=== PATIENT | female | born 1995 | race Caucasian/White ===

== ENCOUNTER 2019-11-27 14:19 | Emergency (ER) | payer OTHER, SELFPAY | END 2019-11-27 17:33 | disposition left against medical advice (07) | LOC: HO.ED 17:12 | PROVIDERS: Emergency Provider Emergency Medicine | DX: R00.2 Palpitations (principal); R11.10 Vomiting, unspecified | CPT/HCPCS: 99281 ==

== ENCOUNTER 2020-10-09 13:59 | Outpatient (REF) | payer OTHER, SELFPAY ==
--- NOTE | ~2020-10-09 | XR_ITS ---
EXAMINATION: XR SACRUM AND COCCYX CLINICAL INFORMATION: Sacrococcygeal disorder COMPARISON: None TECHNIQUE: 2 views of the sacrum and 2 views of the coccyx were obtained. FINDINGS: No fracture, dislocation or bone lesion is seen. The sacroiliac joints are normal. XR/XR sacrum coccyx min 2V IMPRESSION: Unremarkable examination.
[2020-10-09 16:22] LABS: MANUAL DIFF FLAG NO
[2020-10-09 16:27] LABS: Appearance Urine CLEAR; Color Urine YELLOW; Glucose Urine UA 100 MG/DL (NEG); Leukocyte Esterase Urine NEG (NEG); Nitrite Urine NEG (NEG); Specific Gravity - Urine 1.025 (1.005-1.025); Urine Blood NEG (NEG); Urine Ketones NEG (NEG); Urine Protein NEG (NEG-TRACE)
[2020-10-09 16:27] LABS: Basophils Percent Auto 0.7 % (0-2); Eosinophils Absolute Auto 0.3 X10*3/uL (0.0-0.4); Eosinophils Percent Auto 4.8 % (0-4); Hematocrit 36.2 % (37-47); Hemoglobin 11.9 g/dl (12.0-16.0); Imm Gran Abs Auto 0.01 X10*3/uL (0.00-0.03); Imm Gran Pct Auto 0.2 % (0.0-0.4); Lymphocytes Percent Auto 36.2 % (20-40); Mean Corpuscular HGB Conc 32.9 g/dl (31.0-35.0); Mean Corpuscular Hemoglobin 30.1 pg (27.0-33.0); Mean Corpuscular Volume 91.6 fL (80-98); Mean Platelet Volume 9.7 fL (9.4-12.3); Monocytes Absolute Auto 0.4 X10*3/uL (0.1-1.2); Monocytes Percent Auto 8.2 % (2-11); Neutrophils Absolute Auto 2.7 X10*3/uL (2.0-8.3); Neutrophils Percent Auto 49.9 % (45-73); Platelet Count 359 X10*3/uL (160-400); Red Blood Count 3.95 X10*6/uL (4.20-5.50); Red Cell Distribution Width 12.7 % (11.0-16.0); White Blood Count 5.4 X10*3/uL (4.8-10.8)
[2020-10-09 16:51] LABS: Alanine Aminotransferase 9 U/L (0-31); Albumin Level 4.7 g/dL (3.5-5.0); Alkaline Phosphatase 49 U/L (39-117); Anion Gap 13 (12-20); Aspartate Amino Transferase 18 U/L (5-31); Bilirubin Total 0.6 mg/dL (0.0-1.0); Blood Urea Nitrogen 17 mg/dL (9-16); Calcium 9.9 mg/dL (8.4-10.2); Carbon Dioxide 24 mmol/L (22-29); Chloride 104 mmol/L (96-108); Cholesterol 193 mg/dL; Estimated Glomerular Filt Rate > 60; Glucose Random 68 mg/dL (60-115); Potassium 3.9 mmol/L (3.3-5.1); Sodium 137 mmol/L (135-145); Total Protein 7.8 g/dL (6.5-8.0)
[2020-10-09 17:13] LABS: TSH reflex Free T4 0.45 uIU/mL (0.32-4.0); Vitamin D 25-OH Total 28.8 ng/mL (>30)
== END 2020-10-09 14:00 | disposition home or self-care (01) ==
LOC: HO.HMGCX 13:59
PROVIDERS: PCP Internal Medicine; Visit Provider Internal Medicine
DX: M53.3 Sacrococcygeal disorders, not elsewhere classified (principal); R63.8 Other symptoms and signs concerning food and fluid intake; E55.9 Vitamin D deficiency, unspecified
CPT/HCPCS: 36415; 72220; 80053; 81003; 82306; 82465; 84443; 85025

== ENCOUNTER 2021-07-19 07:15 | Outpatient (REF) | payer OTHER, SELFPAY ==
[2021-07-19 07:46] LABS: MANUAL DIFF FLAG NO
[2021-07-19 08:16] LABS: Basophils Absolute Auto 0.1 X10*3/uL (0.0-0.2); Basophils Percent Auto 0.7 % (0-2); Eosinophils Absolute Auto 0.4 X10*3/uL (0.0-0.4); Eosinophils Percent Auto 5.3 % (0-4); Hematocrit 35.5 % (37.0-47.0); Hemoglobin 11.7 g/dl (12.0-16.0); Imm Gran Abs Auto 0.03 X10*3/uL (0.00-0.03); Imm Gran Pct Auto 0.4 % (0.0-0.4); Lymphocytes Absolute Auto 1.7 X10*3/uL (1.2-4.9); Lymphocytes Percent Auto 23.5 % (20-40); Mean Corpuscular Hemoglobin 30.1 pg (27.0-33.0); Mean Corpuscular Volume 91.3 fL (80.0-98.0); Mean Platelet Volume 9.1 fL (9.4-12.3); Monocytes Absolute Auto 0.6 X10*3/uL (0.1-1.2); Monocytes Percent Auto 7.9 % (2-11); Neutrophils Absolute Auto 4.5 x10*3/uL (2.0-8.3); Neutrophils Percent Auto 62.2 % (45-73); Platelet Count 318 X10*3/uL (160-400); Red Blood Count 3.89 X10*6/uL (4.20-5.50); Red Cell Distribution Width 13.5 % (11.0-16.0); White Blood Count 7.2 X10*3/uL (4.8-10.8)
[2021-07-19 08:29] LABS: Alanine Aminotransferase 12 U/L (0-31); Albumin Level 4.4 g/dL (3.5-5.0); Alkaline Phosphatase 53 U/L (39-117); Anion Gap 12 (12-20); Aspartate Amino Transferase 16 U/L (5-31); Bilirubin Total 0.6 mg/dL (0.0-1.0); Blood Urea Nitrogen 17 mg/dL (9-16); Calcium 9.5 mg/dL (8.4-10.2); Carbon Dioxide 22 mmol/L (22-29); Chloride 109 mmol/L (96-108); Cholesterol 209 mg/dL; Estimated Glomerular Filt Rate > 60; Glucose Fasting 96 mg/dL (60-99); HDL Cholesterol 46 mg/dL; LDL Cholesterol Calculated 146 mg/dl; Potassium 4.2 mmol/L (3.3-5.1); Sodium 139 mmol/L (135-145); Total Protein 7.7 g/dL (6.5-8.0); Triglycerides 86 mg/dL
[2021-07-19 08:42] LABS: HBS Num1 149.51 mIU/mL (0-7.99); HBc Num1 0.07 S/CO (0.00-0.79); HBsAGNum1 0.21 S/CO (0.00-0.99); Hepatitis B Core Antibody Nonreactive (Nonreactive); Hepatitis B Surface Antigen Negative (Negative); ~Hepatitis B Surface Antibody REACTIVE (Nonreactive)
[2021-07-20 11:53] LABS: Rubella IgG Antibody 1.56 Index
== END 2021-07-19 07:16 | disposition home or self-care (01) ==
LOC: HO.LAB 07:15
PROVIDERS: PCP Internal Medicine; Visit Provider Nurse Practitioner Family
DX: Z00.00 Encounter for general adult medical examination without abnormal findings (principal); Z13.9 Encounter for screening, unspecified; I10 Essential (primary) hypertension; E78.00 Pure hypercholesterolemia, unspecified
CPT/HCPCS: 36415; 80053; 80061; 85025; 86704; 86706; 86735; 86762; 86765; 86787; 87340

== ENCOUNTER 2021-10-31 12:44 | Emergency (ER) | payer OTHER, SELFPAY ==
--- NOTE | ~2021-10-31 | CT_ITS ---
EXAMINATION: CT ABDOMEN AND PELVIS WITHOUT CONTRAST CLINICAL INFORMATION: Flank pain. Question kidney stones or pyelonephritis COMPARISON: CT abdomen and pelvis 11/22/2014 TECHNIQUE: Multidetector volumetric imaging was performed from the superior aspect of the liver through the pubic symphysis. Sagittal and coronal reformatted images were obtained on the technologist's workstation. This CT examination was performed using dose optimization techniques as appropriate, variously including the following: *Automated exposure control *Adjustment of mA and/or kV according to patient size (this includes techniques or standardized protocols for targeted exams where dose is matched to indication/reason for exam; i.e. extremities or head) *Use of iterative reconstruction technique DLP: 265 mGy-cm FINDINGS: LUNG BASES: The visualized lung bases are unremarkable. LIVER, GALLBLADDER, AND BILIARY TREE: Unchanged small focus of fatty infiltration in the medial segment left liver lobe adjacent to the falciform ligament. Otherwise normal hepatic attenuation. No suspicious appearing liver lesion. No biliary ductal dilation. Possible small amount of layering sludge in the gallbladder. No calcified stones, gallbladder wall thickening or pericholecystic inflammatory change. PANCREAS: Unremarkable. SPLEEN: Unremarkable. ADRENAL GLANDS: Unremarkable. KIDNEYS AND URETERS: The kidneys are normal in size, shape, and attenuation. No hydronephrosis, hydroureter, or calculi seen. No perinephric stranding. BLADDER: Unremarkable. GASTROINTESTINAL TRACT: The small and large bowel are unremarkable. The appendix is unremarkable. Moderate amount of formed stool in the nondilated colon. No ascites or free air. ABDOMINAL WALL: No significant hernia is appreciated. LYMPH NODES: No lymphadenopathy. VASCULAR: Normal caliber abdominal aorta. PELVIC VISCERA: Gynecologic structures are grossly unremarkable limited assessment. OSSEOUS STRUCTURES: No acute fracture or suspicious osseous lesion. CT/CT abdomen pelvis wo IV con IMPRESSION: 1. No radiodense urinary tract calculi. No hydronephrosis or perinephric stranding/collection. Cannot reliably exclude the diagnosis of pyelonephritis on the basis of noncontrast CT. 2. No acute intra-abdominal process identified.
[2021-10-31 15:12] LABS: MANUAL DIFF FLAG NO
[2021-10-31 15:14] LABS: Basophils Percent Auto 0.3 % (0-2); Eosinophils Absolute Auto 0.1 X10*3/uL (0.0-0.4); Eosinophils Percent Auto 0.6 % (0-4); Hematocrit 37.6 % (37.0-47.0); Hemoglobin 12.5 g/dl (12.0-16.0); Imm Gran Abs Auto 0.04 X10*3/uL (0.00-0.03); Imm Gran Pct Auto 0.4 % (0.0-0.4); Lymphocytes Percent Auto 10.7 % (20-40); Mean Corpuscular HGB Conc 33.2 g/dl (31.0-35.0); Mean Corpuscular Hemoglobin 30.4 pg (27.0-33.0); Mean Corpuscular Volume 91.5 fL (80.0-98.0); Mean Platelet Volume 9.3 fL (9.4-12.3); Monocytes Absolute Auto 0.7 X10*3/uL (0.1-1.2); Monocytes Percent Auto 7.6 % (2-11); Neutrophils Absolute Auto 7.2 x10*3/uL (2.0-8.3); Neutrophils Percent Auto 80.4 % (45-73); Platelet Count 343 X10*3/uL (160-400); Red Blood Count 4.11 X10*6/uL (4.20-5.50); Red Cell Distribution Width 13.1 % (11.0-16.0)
[2021-10-31 15:20] VITALS: BP 124/68; PULSE 97; RESP 18; TEMP 36.9; O2SAT 99; BMI 17.5
[2021-10-31 15:32] LABS: Anion Gap 17 (12-20); Blood Urea Nitrogen 16 mg/dL (9-16); Calcium 9.6 mg/dL (8.4-10.2); Carbon Dioxide 23 mmol/L (22-29); Chloride 106 mmol/L (96-108); Creatinine Clr Calc Pharmacy 59.2; Estimated Glomerular Filt Rate > 60; Glucose Random 97 mg/dL (60-115); Sodium 142 mmol/L (135-145)
[2021-10-31] MEDS: Ondansetron ODT 4 MG TAB.RAPDIS TRANSLINGU ×2 (15:34→17:21)
[2021-10-31 15:58] LABS: Appearance Urine Clear; Color Urine Yellow; Glucose Urine UA Negative (Negative); Leukocyte Esterase Urine Negative (Negative); Nitrite Urine Negative (Negative); UMIC TRIGGER UACC YES; Urine Blood Trace (Negative); Urine Ketones 15 mg/dL (Negative); Urine Protein Negative (Neg-Trace)
[2021-10-31 15:59] LABS: UPreg QC Valid YES; Urine Pregnancy NEGATIVE (NEGATIVE)
[2021-10-31 16:02] LABS: Bacteria Urine None Seen (None Seen); Hyaline Casts Urine 0-2 /LPF (0-2); RBC Urine 0-2 /HPF (0-2); WBC Urine 0-5 /HPF (0-5)
--- NOTE | 2021-10-31 16:32 | ED_ITS ---
HPI - Female Genitourinary General Chief complaint: Urogenital-Female Stated complaint: possible kidney infection,sent from urgent care Time Seen by Provider: 10/31/21 15:12 Source: patient Mode of arrival: ambulatory Limitations: no limitations History of Present Illness HPI Narrative: 26 yolld female presents to the ED for bilateral flank pain and nausea. patient was diagnosed with UTI this past monday and given antiibtiocs. patient states that time she had only dysuria and cloudy urine. patient states today she woke up with bilateral flank pain. patient states no fever or chills. Patient denies any vaginal bleeding, or gross hematuria. Related Data Previous Rx's Medication Instructions Recorded ciprofloxacin HCl 250 mg tablet 250 mg PO BID 5 days #10 tabs 10/29/21 (Cipro) ketorolac 10 mg tablet 10 mg PO QID PRN pain 5 days #20 10/31/21 tabs Allergies Allergy/AdvReac Type Severity Reaction Status Date / Time No Known Allergies Allergy Verified 10/31/21 15:20 Review of Systems Review of Systems: Flank pain Yes all other systems are reviewed and are negative [facility] Past Medical History Medical History Coccygeal pain Underweight Weight disorder Surgical History History of elective breast augmentation Family History Family History Father No problems noted. Mother No problems noted. Maternal Grandmother Diabetes Paternal Grandmother Diabetes Maternal Uncle Cancer Social History Social History Housing: Apartment Alcohol intake: never Patient Tobacco Use Status: Never used Tobacco Second Hand Smoke Exposure: Yes Advance Directives: No Advance Directives Information Provided: Yes service: No Current occupational status: employed Current occupation: paraprofessional Cognitive needs: No Hearing needs: No Vision needs: Yes Physical Exam Vital Signs: Vital Signs: Last Vital Signs Temp 98.4 F 10/31/21 15:20 Pulse 97 10/31/21 15:20 Resp 18 10/31/21 15:20 BP 124/68 10/31/21 15:20 Pulse Ox 99 10/31/21 15:20 O2 Del Method 10/31/21 15:20 BMI result Body Mass Index 17.5 Const: General: cooperative, healthy appearing, comfortable, no acute distress, well developed, alert, awake and Physically active; No acute distress Orientation/consciousness: oriented to person, oriented to place, oriented to time and patient oriented x3 HEENT: Head: Yes normal to inspection, Yes No palpable skull fracture present, Yes normocephalic, Yes atraumatic and No abrasion Eyes: General: appearance normal, both eyes and all related structures Neck: Neck: Yes normal visual inspection, Yes full ROM, Yes no lymphadenopathy, Yes no meningeal signs, Yes trachea midline, Yes supple, No anterior neck swelling and No tender Chest: Chest palpation & inspection: normal inspection of the chest and normal palpation of entire chest wall Resp: Effort & Inspection: normal respiratory effort and able to speak in complete sentences Auscultation: clear to auscultation bilaterally Cardio: Jugular venous distension: no JVD Heart sounds: S1 normal heart sound present and S2 normal heart sound present GI: Inspection: Yes normal to inspection and No abdominal wall ecchymosis Palpation (GI): Soft to palpation, not firm, nontender, no guarding and not rigid : General: Yes CVA tenderness (mild left) and Yes no CVA tenderness Back/Spine/Pelvis: Back: no CVA tenderness and CVA tenderness (mild left) Skin: General skin exam: no rashes or lesions noted and elasticity normal Neuro: General: oriented to person, oriented to place, oriented to time, patient oriented x3, gait normal, moves all extremities, Normal light touch and pain sensation, no meningeal signs, no focal motor deficits and CN's II-XI intact bilaterally Extrem: General: Yes normal to inspection and Yes full ROM Psych: Appearance: grossly normal, well kempt and not disheveled Course Course Course Narrative: Labs and UA was ordered in triage. I reviewed patient's chart and patient's urine sample on the 29 of October positive for nitrates and bacteria. Today UA only shows trace of blood but no longer any nitrites. Due to recent UTI was sent for CT scan to make sure there is no stone. Reevaluation(s) Reevaluation #1: patient's [facility] CT scan came back normal. patient pain resolved after receiving toradol. patient informed to finish taking her antibiotics. patient is safe for dscharge Time: 17:52 MDM - Female Genitourinary MDM Narrative Medical decision making narrative: UTI. Flank pain Lab Data Result diagrams: 10/31/21 14:54 10/31/21 14:54 Labs: Lab Results 10/31/21 10/31/21 10/31/21 Range/Units 14:54 14:54 15:33 WBC 9.0 (4.8-10.8) X10*3/uL RBC 4.11 L (4.20-5.50) X10*6/uL Hgb 12.5 (12.0-16.0) g/dl Hct 37.6 (37.0-47.0) % MCV 91.5 (80.0-98.0) fL MCH 30.4 (27.0-33.0) pg MCHC 33.2 (31.0-35.0) g/dl RDW 13.1 (11.0-16.0) % Plt Count 343 (160-400) X10*3/uL MPV 9.3 L (9.4-12.3) fL Immature Gran % (Auto) 0.4 (0.0-0.4) % Neut % (Auto) 80.4 H (45-73) % Lymph % (Auto) 10.7 L (20-40) % Haines % (Auto) 7.6 (2-11) % Eos % (Auto) 0.6 (0-4) % Baso % (Auto) 0.3 (0-2) % Lymph # (Auto) 1.0 L (1.2-4.9) X10*3/uL Haines # (Auto) 0.7 (0.1-1.2) X10*3/uL Eos # (Auto) 0.1 (0.0-0.4) X10*3/uL Baso # (Auto) 0.0 (0.0-0.2) X10*3/uL Abs Immat Gran (auto) 0.04 H (0.00-0.03) X10*3/uL Absolute Neuts (auto) 7.2 (2.0-8.3) x10*3/uL Absolute Nucleated RBC 0.000 (0.0-0.012) X10*3/uL Nucleated RBC % (auto) 0.0 (0.0-0.2) /100WBC Sodium 142 (135-145) mmol/L Potassium 4.0 (3.3-5.1) mmol/L Chloride 106 (96-108) mmol/L Carbon Dioxide 23 (22-29) mmol/L Anion Gap 17 (12-20) BUN 16 (9-16) mg/dL Creatinine 1.07 (0.5-1.4) mg/dL Estim Creat Clear Calc 59.2 Estimated GFR > 60 Random Glucose 97 (60-115) mg/dL Calcium 9.6 (8.4-10.2) mg/dL Urine Color Yellow Urine Appearance Clear Urine pH 6.0 (5.0-9.0) Ur Specific [place] 1.010 (1.005-1.025) Urine Protein Negative (Neg-Trace) mg/dL Urine Glucose (UA) Negative (Negative) mg/dL Urine Ketones 15 (Negative) mg/dL Urine Blood Trace H (Negative) Urine Nitrite Negative (Negative) Ur Leukocyte Esterase Negative (Negative) Urine RBC 0-2 (0-2) /HPF Urine WBC 0-5 (0-5) /HPF Ur Squamous Epith Cells 3-5 (0-2) /HPF Urine Bacteria None Seen (None Seen) Hyaline Casts 0-2 (0-2) /LPF Urine Test (NEGATIVE) 10/31/21 Range/Units 15:33 WBC (4.8-10.8) X10*3/uL RBC (4.20-5.50) X10*6/uL Hgb (12.0-16.0) g/dl Hct (37.0-47.0) % MCV (80.0-98.0) fL MCH (27.0-33.0) pg MCHC (31.0-35.0) g/dl RDW (11.0-16.0) % Plt Count (160-400) X10*3/uL MPV (9.4-12.3) fL Immature Gran % (Auto) (0.0-0.4) % Neut % (Auto) (45-73) % Lymph % (Auto) (20-40) % Haines % (Auto) (2-11) % Eos % (Auto) (0-4) % Baso % (Auto) (0-2) % Lymph # (Auto) (1.2-4.9) X10*3/uL Haines # (Auto) (0.1-1.2) X10*3/uL Eos # (Auto) (0.0-0.4) X10*3/uL Baso # (Auto) (0.0-0.2) X10*3/uL Abs Immat Gran (auto) (0.00-0.03) X10*3/uL Absolute Neuts (auto) (2.0-8.3) x10*3/uL Absolute Nucleated RBC (0.0-0.012) X10*3/uL Nucleated RBC % (auto) (0.0-0.2) /100WBC Sodium (135-145) mmol/L Potassium (3.3-5.1) mmol/L Chloride (96-108) mmol/L Carbon Dioxide (22-29) mmol/L Anion Gap (12-20) BUN (9-16) mg/dL Creatinine (0.5-1.4) mg/dL Estim Creat Clear Calc Estimated GFR Random Glucose (60-115) mg/dL Calcium (8.4-10.2) mg/dL Urine Color Urine Appearance Urine pH (5.0-9.0) Ur Specific [place] (1.005-1.025) Urine Protein (Neg-Trace) mg/dL Urine Glucose (UA) (Negative) mg/dL Urine Ketones (Negative) mg/dL Urine Blood (Negative) Urine Nitrite (Negative) Ur Leukocyte Esterase (Negative) Urine RBC (0-2) /HPF Urine WBC (0-5) /HPF Ur Squamous Epith Cells (0-2) /HPF Urine Bacteria (None Seen) Hyaline Casts (0-2) /LPF Urine Test NEGATIVE (NEGATIVE) Discharge Plan Discharge Clinical Impression: Urinary tract infection, Acute flank pain Patient Disposition: Home, Self-Care Instructions: Urinary Tract Infection in Women (ED), Flank Pain (ED) Additional Instructions: Your labs and CT scan of abdomen came back normal. You're UA shows improving UTI. Return to the ED immediately for any fever, chills, worsening flank pain, nausea, vomiting, hematuria, dysuria, vaginal bleeding, or any other concerning symptoms. Pleaes follow up with PCP Prescriptions: New ketorolac 10 mg tablet 10 mg PO QID PRN (Reason: pain) 5 Days Qty: 20 0RF Rx Instructions: received toradol 30mg IM in the ED No Action ciprofloxacin HCl [Cipro] 250 mg tablet 250 mg PO BID 5 Days Qty: 10 0RF Stand Alone Forms: Work/School Release Print Language: Belarusian
[2021-10-31] MEDS: Ketorolac Tromethamine 30 MG/ML VIAL IM (17:21)
== END 2021-10-31 18:41 | disposition home or self-care (01) ==
PROVIDERS: Physician Assistant Medical; Emergency Provider Internal Medicine; PCP Internal Medicine
DX: N39.0 Urinary tract infection, site not specified (principal); R10.9 Unspecified abdominal pain; R11.2 Nausea with vomiting, unspecified; Z79.899 Other long term (current) drug therapy
CPT/HCPCS: 36415; 74176; 80048; 81001; 81025; 85025; 96372; 99284; J1885

== ENCOUNTER 2021-11-09 15:51 | Outpatient (REF) | payer OTHER, SELFPAY ==
[2021-11-09 17:54] LABS: Appearance Urine Clear; Color Urine Yellow; Glucose Urine UA Negative (Negative); Leukocyte Esterase Urine Small (1+) (Negative); Nitrite Urine Negative (Negative); Specific Gravity - Urine 1.025 (1.005-1.025); UMIC TRIGGER UACC YES; Urine Blood Negative (Negative); Urine Ketones Negative (Negative); Urine Protein Trace mg/dL (Neg-Trace)
[2021-11-09 18:04] LABS: Bacteria Urine None Seen (None Seen); Hyaline Casts Urine 0-2 /LPF (0-2); RBC Urine 0-2 /HPF (0-2); Squamous Epithelial Cell Urine 0-2 /HPF (0-2); UACC Culture Trigger YES; WBC Urine 21-50 /HPF (0-5)
[2021-11-10 07:15] LABS: Syphilis Screen Nonreactive (Nonreactive)
[2021-11-10 12:31] LABS: CT PCR NOT DETECTED (Not Detect.); NG PCR NOT DETECTED (Not Detect.)
== END 2021-11-09 15:52 | disposition home or self-care (01) ==
LOC: HO.LAB 15:51
PROVIDERS: PCP Internal Medicine; Visit Provider Internal Medicine
DX: Z11.3 Encounter for screening for infections with a predominantly sexual mode of transmission (principal); Z20.2 Contact with and (suspected) exposure to infections with a predominantly sexual mode of transmission; N39.0 Urinary tract infection, site not specified
CPT/HCPCS: 81001; 86780; 87086; 87491; 87591

== ENCOUNTER 2022-01-12 10:57 | Outpatient (REF) | payer OTHER, SELFPAY ==
[2022-01-12 15:23] LABS: Influenza A PCR NEGATIVE (Negative); Influenza B PCR NEGATIVE (Negative); Resp Syncy Virus RNA Qual PCR NEGATIVE (Negative); SARS COV2 PCR INHOUSE NEGATIVE (Negative)
== END 2022-01-12 10:58 | disposition home or self-care (01) ==
LOC: HO.LAB 10:57
PROVIDERS: Visit Provider Nurse Practitioner Family
DX: Z20.822 Contact with and (suspected) exposure to COVID-19 (principal); J02.9 Acute pharyngitis, unspecified
CPT/HCPCS: 0241U

== ENCOUNTER 2022-02-23 06:38 | Outpatient (REF) | payer OTHER, SELFPAY ==
[2022-02-23 07:59] LABS: HCG Quantitative 800 mIU/mL
== END 2022-02-23 06:39 | disposition home or self-care (01) ==
LOC: HO.LAB 06:38
PROVIDERS: PCP Internal Medicine; Visit Provider Internal Medicine
DX: N92.6 Irregular menstruation, unspecified (principal)
CPT/HCPCS: 36415; 84702

== ENCOUNTER 2023-05-23 11:36 | Outpatient (AMB) | payer OTHER, SELFPAY ==
--- NOTE | 2023-05-23 11:37 | MHC.OFFWIV ---
Intake Vital Signs 05/23/23 11:38 Height 5 ft 4 in Weight 110 lb BMI 18.9 BP 114/72 Blood Pressure Location Lt brachial Position Sitting Pulse 60 Pulse Source Pulse Oximeter Temp 97.6 F Temp Source Temporal Artery Scan Pulse Oximetry (%) 100 Oxygen Delivery Method Room Air Intake Visit Reasons: EP sore RT throat yellow mucous (lobby) Intake Note: pt is here today for sore throat yellow mucous started 2days ago Patient Tobacco Use Status: Never used Tobacco Allergies No Known Allergies Allergy (Verified 05/23/23 11:50) Do you need a note to return to daycare/school/sports/work: No HPI HPI Comments History of Present Illness Details Patient is a 27-year-old female in today for sick visit. Patient has no significant past medical history. Patient was diagnosed with COVID 5 days prior to this appointment. She reports symptoms of headache, cough, sore throat. Patient states that the sore throat has gotten progressively worse. Has utilized [id number] cepacol throat lozenges with little effect. She also reports expectorated yellowing green mucus. Patient denies chest pain, shortness a breath, nausea, vomiting, diarrhea, dizziness, numbness PFSH Medical History Migraine Underweight Surgical History History of elective breast augmentation Family History Father No problems noted. Mother No problems noted. Maternal Grandmother Diabetes Paternal Grandmother Diabetes Maternal Uncle Cancer Social History Housing: Apartment Alcohol intake: never Patient Tobacco Use Status: Never used Tobacco e-Cigarette/Vaping Use: Never Used Second Hand Smoke Exposure: Yes service: No Current occupational status: employed Current occupation: paraprofessional Cognitive needs: No Hearing needs: No Vision needs: Yes Review of Systems Const All systems reviewed & are unremarkable except as noted in HPI and below Physical Exam Vital Signs: Last Vital Signs Temp 97.6 F 05/23/23 11:38 Pulse 60 05/23/23 11:38 BP 114/72 05/23/23 11:38 Pulse Ox 100 05/23/23 11:38 Oxygen Delivery Method Room Air 05/23/23 11:38 BMI result Body Mass Index 18.9 Vital signs reviewed stable Const Other: Appearance: Alert.? Oriented X3.? No acute distress.? Head: Normocephalic, atraumatic, no step-offs or deformities ENT: Pharynx erythema. Tonsils +2 no exudate. TM intact and pearly mckenzie Neck: Normal inspection.? Neck supple.?+anterior cervical lymphadenopathy. CVS: Normal heart rate and rhythm.? Pulses normal.? Respiratory: No respiratory distress.? Breath sounds normal.? Neuro: Oriented X 3.? No motor deficit.? No sensory deficit. CN 2-12 intact Assessment & Plan Assessment & Plan (1) COVID: Comment: Patient educated that COVID symptoms can last up to 10 days. Should continue to use [id number] medicine for relief. Can utilize Tylenol and ibuprofen as needed. Should stay hydrated drink plenty water. Code(s): U07.1 - COVID-19 Plan: Take your medications as prescribed. If you were prescribed antibiotics today, it is important that you take your medication to their entirety, do not skip any doses, do not finish them early. Follow-up with your primary care provider this week. Return to the emergency department with new or worsening symptoms. Such as fevers, chills, chest pain, shortness of breath, nausea, vomiting, dizziness, headache, vision changes, lethargy In case of emergency call 911 Plan Strep swab negative. Will call patient with upper respiratory swab results Orders: Orders SARS-CoV2/FLU/RSV Today J06.9 - Acute upper respiratory infection, unspecified Coding Level of Care Code Est Pt Level 3 (66221) Diagnoses COVID U07.1 Time Spent (min) 22
[2023-05-23 11:38] VITALS: BP 114/72; PULSE 60; TEMP 36.4; O2SAT 100; BMI 18.9
== END 2023-05-23 12:32 | disposition home or self-care (01) ==
PROVIDERS: PCP Internal Medicine; Visit Provider Nurse Practitioner Primary Care
DX: U07.1 COVID-19 (principal)
CPT/HCPCS: 99213

== ENCOUNTER 2023-05-23 13:34 | Outpatient (REF) | payer OTHER, SELFPAY ==
[2023-05-23 14:54] LABS: Influenza A PCR NEGATIVE (Negative); Influenza B PCR NEGATIVE (Negative); Resp Syncy Virus RNA Qual PCR NEGATIVE (Negative); SARS COV2 PCR INHOUSE POSITIVE (Negative)
== END 2023-05-23 13:35 | disposition home or self-care (01) ==
LOC: HO.HMGCLNP 13:34
PROVIDERS: Visit Provider Nurse Practitioner Primary Care
DX: Z11.52 Encounter for screening for COVID-19 (principal); J06.9 Acute upper respiratory infection, unspecified
CPT/HCPCS: 0241U

== ENCOUNTER 2023-07-25 15:43 | Outpatient (AMB) | payer OTHER, SELFPAY ==
[2023-07-25 15:45] VITALS: BP 90/62; PULSE 71; O2SAT 99; BMI 17.7
--- NOTE | 2023-07-25 15:45 | A.OFFPC_ITS ---
Vital Signs 07/25/23 15:45 Height 5 ft 4 in Weight 103 lb 0.2 oz BMI 17.7 BP 90/62 Blood Pressure Location Lt brachial Position Sitting Pulse 71 Pulse Source Pulse Oximeter Pulse Oximetry (%) 99 Oxygen Delivery Method Room Air Intake Visit Reasons: pe Animal Cop Required: No Allergies No Known Allergies Allergy (Verified 07/25/23 16:33) Medication List - Last Reconciled 07/25/23 by Kiran Ayoub MD norelgestromin-ethin.estradiol 150-35 mcg/24 hr (Xulane) patches transdermal Tobacco use date assessed: 07/25/23 Dental Screening Dental Screen Date: 07/25/23 Did you have a dental visit in the last 12 months?: Yes Did you have a dental problem in the last 6 months where you did not have access to dental care?: No Was dental information given to patient?: Patient has dentist HPI pe HPI Details Patient comes in today for her annual physical examination States that she feels okay She denies any headaches or dizziness Denies any chest pains, no SOB No nausea/vomiting, no abdominal pain No change in bowel habits noted She denies any acute urinary symptoms Patient goes to [facility] for her annual pap smear and gynecology exam and states that she had her exam done already earlier this year [facility] Medical History Migraine Underweight Surgical History History of elective breast augmentation Family History Father No problems noted. Mother No problems noted. Maternal Grandmother Diabetes Paternal Grandmother Diabetes Maternal Uncle Cancer Social History Housing: Apartment Alcohol intake: never Patient Tobacco Use Status: Never used Tobacco e-Cigarette/Vaping Use: Never Used Second Hand Smoke Exposure: Yes service: No Current occupational status: employed Current occupation: paraprofessional Cognitive needs: No Hearing needs: No Vision needs: Yes Female Reproductive History Menstrual Number of Living Children: 1 Questionnaire PHQ-9 Over the last 2 weeks, how often have you been bothered by any of the following problems? 1. Little interest or pleasure in doing things: not at all 2. Feeling down, depressed, or hopeless: not at all 3. Trouble falling or staying asleep, or sleeping too much: not at all 4. Feeling tired or having little energy: not at all 5. Poor appetite or overeating: not at all 6. Feeling bad about yourself - or that you are a failure or have let yourself or your family down: not at all 7. Trouble concentrating on things, such as reading the newspaper or watching television: not at all 8. Moving or speaking so slowly that other people could have noticed. Or the opposite - being so fidgety or restless that you have been moving around a lot more than usual: not at all 9. Thoughts that you would be better off or of hurting yourself in some way: not at all Total score: 0 Depression Screening Interpretation: Negative Depression Screening Done: Yes 12393 - PHQ-9 Billing: Yes Source: Developed by Drs. Tejinder Ba, Keely Ordonez, Javier Aguirre and colleagues, with an educational hansel from [employer]. Thrive Questionnaire Date Thrive assessed: 07/25/23 I am a: Patient What is your living situation today?: I have a steady place to live Within the past 12 months, did the food you bought not last and you didn't have the money to get more?: Never true Within the past 12 months, did you worry whether your food would run out before you got money to buy more?: Never true Do you have trouble paying for medicines?: No Do you have trouble getting transportation to medical appointments?: No Do you have trouble paying your heating and electricity bill?: No Do you have trouble taking care of your child, family member or friend?: No Do you have trouble with day-to-day activities such as bathing, preparing meals, shopping, managing finances, etc.?: No Are you currently unemployed and looking for a job?: No Are you interested in more education?: No Please select the resources that you would like help with: None Currently or been in a relationship where the following occur: no concerns reported THRIVE Score: 0 AUDIT C Alcohol Use Questionnaire (AUDIT-C) 1. How often do you have a drink containing alcohol?: Never 3. How often do you have six or more drinks on one occasion?: Never Total Score: 0 Score Reviewed/Action Taken: Yes NURYS-7 AMB Questionnaire NURYS-7 Date NURYS - 7 assessed: 07/25/23 Feeling nervous, anxious, or on edge: 0 = Not at all Not being able to stop or control worryin = Not at all Worrying too much about different things: 0 = Not at all Trouble relaxin = Not at all Being so restless that it is hard to sit still: 0 = Not at all Becoming easily annoyed or irritable: 0 = Not at all Feeling afraid as if something awful might happen: 0 = Not at all Total NURYS-7 score (0-4 normal; 5-9 mild; 10-14 moderate; 15-21 severe): 0 Source: Developed by Drs. Tejinder Ba, Keely Ordonez, Javier Aguirre and colleagues, with an educational hansel from [employer]. NURYS-7 Assessment Billing NURYS-7 Assessment Tool: NURYS-7 Assessment 42385 Review of Systems Const Denies chills, Reports difficulty sleeping (mostly because of her 9 months old baby at this time), Denies fatigue, Denies fever(s), Denies headache(s) and Denies malaise Eyes Denies blurry vision, Denies change in vision, Denies irritation and Denies itchy eyes ENT Denies dysphagia, Denies dizziness, Denies otalgia, Denies headache(s), Denies nasal congestion, Denies neck pain, Denies odynophagia, Denies sinus pain and Denies sore throat Card Denies chest pain, Denies rapid heart rate, Denies irregular heart rhythm, Denies palpitations and Denies dyspnea Resp Denies chest congestion, Denies cough, Denies dyspnea and Denies wheezing GI Denies abdominal pain, Denies bloating, Denies constipation, Denies dysphagia, Denies heartburn, Denies diarrhea, Denies nausea, Denies odynophagia and Denies vomiting Denies hematuria, Denies urinary frequency, Denies dysuria, Denies urinary incontinence and Denies urinary urgency Musc Denies back pain, Denies arthralgias, Denies joint swelling, Denies muscle weakness and Denies neck pain Skin/Breast Details: (+) recurrent scaling from her scalp - dandruff Denies breast pain, Denies breast mass, Denies change in pigmentation, Denies lesions, Denies rash and Denies unusual bruising Neuro Denies dizziness, Denies headache(s) and Denies paresthesias Psych Denies anxiety and Denies depression Endo Denies fatigue and Denies palpitations Fredrick/Lymph Denies easy bruising Aller/Immun Denies itchy eyes and Denies wheezing Physical exam (Primary Care) Vital Signs: Last Vital Signs Pulse 71 07/25/23 15:45 BP 90/62 07/25/23 15:45 Pulse Ox 99 07/25/23 15:45 Oxygen Delivery Method Room Air 07/25/23 15:45 BMI result Body Mass Index 17.7 Tobacco/Smoking Status: Tobacco use Status Tobacco use date assessed 07/25/23 07/25/23 15:45 Patient Tobacco Use Status Never used Tobacco 07/25/23 15:45 e-Cigarette/Vaping Use Never Used 07/25/23 15:45 PHQ-9: PHQ-9 Score PHQ-9: Total score 0 07/25/23 16:37 Depression Screening Interpretation: Negative Thrive Assessment: Date of Thrive Assessment Date Thrive assessed 07/25/23 07/25/23 15:45 Currently or been in a relationship where the following occur: no concerns reported Const General: no acute distress, alert and awake Orientation/consciousness: patient oriented x3 HENMT Other: (+) mild seborrhea scattered over a few areas on the scalp Head: Yes normocephalic and Yes atraumatic Ears: external ears normal, TM's normal bilaterally and EAC's normal General nose exam: No nasal discharge present Face and sinus: Yes normal facial exam and Yes sinuses nontender Teeth and gingiva: dentition normal Throat: Yes posterior oropharynx normal and Yes tonsils normal (no TP congestion) Eyes Eyelids: Yes eyelids normal Conjunctivae: conjunctivae normal Pupils: Equal, round and reactive pupils present EOM: EOMs intact bilaterally Neck Neck: Yes no lymphadenopathy and Yes supple Thyroid: Thyroid normal Resp Auscultation: clear to auscultation bilaterally, no rales and no wheezes Cardio Rate: regular rate Rhythm: regular rhythm Heart sounds: no murmurs GI Palpation (GI): Soft to palpation, nontender and No hepatosplenomegaly present Auscultation: normal bowel sounds General: Yes no CVA tenderness Back/Spine/Pelvis Back: no CVA tenderness Thoracic/Lumbar Spine: thoracic and lumbar spine normal to inspection Skin Lesions: no lesions Rashes: no rashes Neuro General: patient oriented x3, moves all extremities, no focal motor deficits and CN's II-XI intact bilaterally Cranial nerves: Yes Equal, round and reactive pupils present Cognition (Neuro): normal cognition Gait exam (Neuro): Normal gait present Extrem General: Yes no clubbing, cyanosis or edema Assessment and Plan Assessment & Plan (1) Annual physical exam: Code(s): Z00.00 - Encounter for general adult medical examination without abnormal findings Plan: Check labs She is up-to-date with her annual gynecology exam and pap smear - goes to [facility] (2) Migraine: Code(s): G43.909 - Migraine, unspecified, not intractable, without status migrainosus Qualifiers: Migraine type: unspecified Status migrainosus presence: without status migrainosus Intractability: not intractable Qualified Code(s): G43.909 - Migraine, unspecified, not intractable, without status migrainosus Plan: Reinforced avoidance of migraine triggers States that her headaches have been well-controlled lately Continue Sumatriptan 50 mg PRN (3) Constipation: Code(s): K59.00 - Constipation, unspecified Qualifiers: Constipation type: unspecified constipation type Qualified Code(s): K59.00 - Constipation, unspecified Plan: Encouraged increased oral fluids and dietary fiber Continue Senna 8.6 mg Q HS PRN (4) Seborrhea capitis: Code(s): L21.0 - Seborrhea capitis Plan: Will start her on Ketoconazole 2% shampoo but advised her to use this no more than 2 to 3 times a week Plan Follow up in 6 months Orders: Orders Complete Blood Count Auto Diff 07/25/23 D64.9 - Anemia, unspecified, Z00. - Encounter for general adult medical examination without abnormal findings Comprehensive Met. Panel 07/25/23 Z00. - Encounter for general adult medical examination without abnormal findings Cholesterol 07/25/23 Z00.00 - Encounter for general adult medical examination without abnormal findings TSH reflex Free T4 07/25/23 E78.00 - Pure hypercholesterolemia, unspecified, Z.00 - Encounter for general adult medical examination without abnormal findings Vitamin D 25-OH Total 07/25/23 E55.9 - Vitamin D deficiency, unspecified, Z00.00 - Encounter for general adult medical examination without abnormal findings UA CC w/rflx Micro + Cult 07/25/23 R30.0 - Dysuria, Z00.00 - Encounter for general adult medical examination without abnormal findings HCG Quantitative 07/25/23 N91.1 - Secondary amenorrhea, N92.6 - Irregular menstruation, unspecified Medications: New ketoconazole 2% 1 appl topical 3XW PRN 120 mL 0RF seborrhea multivitamin 1 tab PO DAILY 90 tabs 3RF 90 days Coding Level of Care Code Est Pt Prev Care 18-39y(62972) Diagnoses Annual physical exam Z00.00 Migraine without status migrainosus, not intractable, unspecified migraine type G43.909 Migraine type: unspecified Status migrainosus presence: without status migrainosus Intractability: not intractable Constipation, unspecified constipation type K59.00 Constipation type: unspecified constipation type Seborrhea capitis L21.0 Additional Codes NURYS-7 Assessment Billing - NURYS-7 Assessment Tool: NURYS-7 Assessment 85141 ([id number])
== END 2023-07-25 16:42 | disposition home or self-care (01) ==
PROVIDERS: PCP Internal Medicine; Visit Provider Internal Medicine
DX: Z00.00 Encounter for general adult medical examination without abnormal findings (principal); G43.909 Migraine, unspecified, not intractable, without status migrainosus; K59.00 Constipation, unspecified; L21.0 Seborrhea capitis
CPT/HCPCS: 99395

== ENCOUNTER 2023-07-27 12:19 | Outpatient (REF) | payer OTHER, SELFPAY ==
[2023-07-27 12:30] LABS: MANUAL DIFF FLAG NO
[2023-07-27 13:00] LABS: Basophils Percent Auto 0.5 % (0-2); Eosinophils Absolute Auto 0.2 X10*3/uL (0.0-0.4); Eosinophils Percent Auto 4.1 % (0-4); Hematocrit 32.6 % (37.0-47.0); Hemoglobin 10.7 g/dl (12.0-16.0); Imm Gran Abs Auto 0.02 X10*3/uL (0.00-0.03); Imm Gran Pct Auto 0.4 % (0.0-0.4); Mean Corpuscular HGB Conc 32.8 g/dl (31.0-35.0); Mean Corpuscular Hemoglobin 27.8 pg (27.0-33.0); Mean Corpuscular Volume 84.7 fL (80.0-98.0); Mean Platelet Volume 9.8 fL (9.4-12.3); Monocytes Absolute Auto 0.5 X10*3/uL (0.1-1.2); Monocytes Percent Auto 8.9 % (2-11); Neutrophils Absolute Auto 2.9 x10*3/uL (2.0-8.3); Neutrophils Percent Auto 51.1 % (45-73); Platelet Count 370 X10*3/uL (160-400); Red Blood Count 3.85 X10*6/uL (4.20-5.50); Red Cell Distribution Width 14.4 % (11.0-16.0); White Blood Count 5.6 X10*3/uL (4.8-10.8)
[2023-07-27 13:18] LABS: Appearance Urine Clear; Color Urine Dark Yellow; Glucose Urine UA Negative (Negative); Leukocyte Esterase Urine Negative (Negative); Nitrite Urine Negative (Negative); PH 5.5 (5.0-9.0); Specific Gravity - Urine >= 1.030 (1.005-1.025); Urine Blood Negative (Negative); Urine Ketones Trace mg/dL (Negative); Urine Protein Trace mg/dL (Neg-Trace)
[2023-07-27 14:03] LABS: Alanine Aminotransferase 11 U/L (0-31); Albumin Level 4.2 g/dL (3.5-5.0); Alkaline Phosphatase 67 U/L (39-117); Anion Gap 11 (12-20); Aspartate Amino Transferase 19 U/L (5-31); Bilirubin Total 0.6 mg/dL (0.0-1.0); Blood Urea Nitrogen 15 mg/dL (9-16); Calcium 9.8 mg/dL (8.4-10.2); Carbon Dioxide 22 mmol/L (22-29); Chloride 109 mmol/L (96-108); Cholesterol 205 mg/dL (<200); Estimated Glomerular Filt Rate > 60; Glucose Random 81 mg/dL (60-115); Potassium 4.1 mmol/L (3.3-5.1); Sodium 138 mmol/L (135-145); Total Protein 7.7 g/dL (6.5-8.0)
[2023-07-27 14:26] LABS: HCG Quantitative < 2 mIU/mL; TSH reflex Free T4 0.73 uIU/mL (0.32-4.0); Vitamin D 25-OH Total 20.3 ng/mL (>30)
== END 2023-07-27 12:20 | disposition home or self-care (01) ==
LOC: HO.LAB 12:19
PROVIDERS: PCP Internal Medicine; Visit Provider Internal Medicine
DX: Z00.00 Encounter for general adult medical examination without abnormal findings (principal); E55.9 Vitamin D deficiency, unspecified; R30.0 Dysuria; E78.00 Pure hypercholesterolemia, unspecified; D64.9 Anemia, unspecified; N91.1 Secondary amenorrhea; N92.6 Irregular menstruation, unspecified
CPT/HCPCS: 36415; 80053; 81003; 82306; 82465; 84443; 84702; 85025

== ENCOUNTER 2023-08-10 16:29 | Emergency (ER) | payer OTHER, SELFPAY ==
--- NOTE | ~2023-08-10 | XR_ITS ---
EXAMINATION: XR CHEST CLINICAL INFORMATION: Chest pain COMPARISON: 05/16/2019 TECHNIQUE: Frontal view of the chest was obtained. FINDINGS: No significant abnormality is noted involving the heart, lungs, mediastinum, bony thorax or soft tissues. XR/XR chest 1V IMPRESSION: Unremarkable examination.
--- NOTE | 2023-08-10 16:30 | ECG_ITS ---
Test Reason : CP Blood Pressure : / mmHG Vent. Rate : 089 BPM Atrial Rate : 089 BPM P-R Int : 140 ms QRS Dur : 066 ms QT Int : 362 ms P-R-T Axes : 063 053 036 degrees QTc Int : 440 ms Normal sinus rhythm Normal ECG When compared with ECG of 16-MAY-2019 15:49, No significant change was found Referred By: Andrés Banks Electronically Signed By:HUGO RUCKER
[2023-08-10 16:38] VITALS: BP 125/80; PULSE 88; RESP 16; TEMP 36.3; O2SAT 100; BMI 18.0
--- NOTE | 2023-08-10 16:55 | ED_ITS ---
HPI - General Adult General Chief complaint: Chest Pain Stated complaint: Chest pain Time Seen by Provider: 08/10/23 17:10 Source: patient Mode of arrival: ambulatory Limitations: no limitations History of Present Illness ED Provider: Deborah Wiggins PA-C HPI narrative: 27 yo female with history of migraines, anxiety, gastritis, s/p breast augmentation/implants 4 years ago who presents to the ER for evaluation of left sided chest pain for the last 2 weeks. She states the pain started as a stabbing pain in the left chest and now is more aching and constant. It is worse with deep breaths, coughing and sneezing. The pain is currently 8/10. She denies any associated pain in the breast. No breast swelling, redness, warmth or drainage. No fever, chills, N/V/D, abdominal pain or SOB. No leg swelling. She is on a control patch for contraception, no hx DVT/PE. She tried calling her PCP for evaluation but they did not get back to her so she came in today as the pain was getting worse. MD complaint: left sided chest pain Onset (ago): week(s) (2) Location: chest Radiation: non-radiation Severity: severe Severity scale (1-10): 8 Quality: stabbing and aching Pain Consistency: constant Relieving factors: rest Exacerbating factors: movement and other (deep breaths, coughing) Associated symptoms: headaches and malaise Treatments prior to arrival: none Related Data Home Medications ?Medication ?Instructions ?Recorded ?Confirmed norelgestromin 150 mcg-e.estradiol patch transdermal 05/23/23 07/25/23 35 mcg/24 hr weekly transderm patch (Xulane) Previous Rx's ?Medication ?Instructions ?Recorded ketoconazole 2 % shampoo 1 appl topical 3XW PRN seborrhea 07/25/23 #120 mL multivitamin 1 tab PO DAILY 90 days #90 tabs 07/25/23 naproxen 500 mg tablet (Naprosyn) 500 mg PO BID #14 tabs 08/10/23 Allergies Allergy/AdvReac Type Severity Reaction Status Date / Time No Known Allergies Allergy Verified 08/10/23 16:41 Review of Systems 2 Review of Systems: Yes all other systems are reviewed and are negative PMFSH Past Medical History Medical History Migraine Underweight Surgical History History of elective breast augmentation Family History Family History Father No problems noted. Mother No problems noted. Maternal Grandmother Diabetes Paternal Grandmother Diabetes Maternal Uncle Cancer Social History Social History Housing: Apartment Alcohol intake: never Patient Tobacco Use Status: Never used Tobacco Smoked in Last 30 Days: No e-Cigarette/Vaping Use: Never Used Second Hand Smoke Exposure: Yes Use of substances other than those prescribed or required for medical reasons: No Advance Directives: No Advance Directives Information Provided: No service: No Current occupational status: employed Current occupation: paraprofessional Cognitive needs: No Hearing needs: No Vision needs: Yes Physical Exam ED Vital Signs: Vital Signs - 24 hr 08/10/23 16:38 08/10/23 18:44 Temperature 97.3 F 97.3 F Pulse Rate 88 88 Respiratory Rate 16 18 Blood Pressure 125/80 125/80 Pulse Oximetry 100 98 Oxygen Delivery Method Room Air Room Air BMI result Body Mass Index 18.0 Appearance: Alert. Oriented X3. No acute distress. Head: normocephalic, atraumatic. Eyes: Pupils equal, round and reactive to light. ENT: Pharynx normal. No tonsillar swelling or exudate. Neck: Normal inspection. Neck supple. ' Chest: normal inspection of the bilateral breasts, no swelling, redness, tenderness of the breasts. nontender chest wall. CVS: Normal heart rate and rhythm. Pulses normal. Respiratory: No respiratory distress. Breath sounds normal. Abdomen: Thin, flat, soft and nontender. +BS x4 Skin: Skin warm and dry. Normal skin color. Normal skin turgor. No rashes. Extremities: No lower extremity edema. No joint swelling. Negative Homans sign Neuro/psych: Oriented X 3. Grossly normal and nonfocal. Normal speech and cognition. Course Course Course Narrative: RME: done by LIBBY Dubose. 27-year-old female presents to ED for 2 weeks of chest pain and feeling tired and fatigued. Patient denies any leg swelling, calf pain, recent surgery. Lungs are clear. Negative for calf tenderness or swelling. Negative for pitting edema. EKG x-ray ordered. Medical Decision Making Medical Decision Making [facility] Narrative: 27 year old female presents to ER for evaluation of left-sided chest pain for the last 2 weeks. It is constant, nonradiating, worse with movement, coughing, sneezing. On arrival to the ER her vital signs are stable, no tachycardia or hypoxia. Unable to use the PERC score is she is on hormonal patch. Given her report of pleurisy there was concern for PE. D-dimer today was negative. Her other lab work, chest x-ray, EKG were all reassuring against life-threatening causes of chest pain. No ACS risk factors. No URI symptoms to suggest pneumonia. Chest x-ray is clear. Patient's workup was unremarkable today. She remained hemodynamically stable while in the emergency department. She was in no distress. Cause of her pain is most likely muscular. Will discharge with NSAID and return precautions. Stable for DC with outpatient follow-up PRN. Differential Diagnosis Differential Diagnoses: The differential diagnosis associated with the presentation includes Costochondritis, muscular pain, pneumonia, infection or rupture of the breast implant Lab Data [facility] Lab Attestation statement: I reviewed the patient's lab results. Mild anemia, thrombocytosis, normal renal function, no major metabolic derangement 08/10/23 16:51 08/10/23 16:51 Labs: Lab Results 08/10/23 Range/Units 16:51 WBC 6.6 (4.8-10.8) X10*3/uL RBC 4.21 (4.20-5.50) X10*6/uL Hgb 11.7 L (12.0-16.0) g/dl Hct 35.7 L (37.0-47.0) % MCV 84.8 (80.0-98.0) fL MCH 27.8 (27.0-33.0) pg MCHC 32.8 (31.0-35.0) g/dl RDW 14.5 (11.0-16.0) % Plt Count 417 H (160-400) X10*3/uL MPV 9.3 L (9.4-12.3) fL Immature Gran % (Auto) 0.2 (0.0-0.4) % Neut % (Auto) 51.2 (45-73) % Lymph % (Auto) 35.0 (20-40) % Moffat % (Auto) 6.7 (2-11) % Eos % (Auto) 6.1 H (0-4) % Baso % (Auto) 0.8 (0-2) % Lymph # (Auto) 2.3 (1.2-4.9) X10*3/uL Moffat # (Auto) 0.4 (0.1-1.2) X10*3/uL Eos # (Auto) 0.4 (0.0-0.4) X10*3/uL Baso # (Auto) 0.1 (0.0-0.2) X10*3/uL Abs Immat Gran (auto) 0.01 (0.00-0.03) X10*3/uL Absolute Neuts (auto) 3.4 (2.0-8.3) x10*3/uL Absolute Nucleated RBC 0.000 (0.0-0.012) X10*3/uL Nucleated RBC % (auto) 0.0 (0.0-0.2) /100WBC PT 12.2 (11.1-13.3) SEC INR 1.0 (0.9-1.1) APTT 32.0 (26.0-36.8) SEC D-Dimer High Sensitivty < 150 NG/ML Sodium 138 (135-145) mmol/L Potassium 3.8 (3.3-5.1) mmol/L Chloride 106 (96-108) mmol/L Carbon Dioxide 23 (22-29) mmol/L Anion Gap 13 (12-20) BUN 19 H (9-16) mg/dL Creatinine 0.77 (0.5-1.4) mg/dL Estim Creat Clear Calc 83.9 Estimated GFR > 60 Random Glucose 86 (60-115) mg/dL Calcium 9.2 D (8.4-10.2) mg/dL Total Bilirubin 0.6 (0.0-1.0) mg/dL AST 16 (5-31) U/L ALT 12 (0-31) U/L Alkaline Phosphatase 75 (39-117) U/L Troponin I High Sens < 2.7 (<3.5-17.0) ng/L Total Protein 8.2 H (6.5-8.0) g/dL Albumin 4.6 (3.5-5.0) g/dL TSH 0.83 (0.32-4.0) uIU/mL Influenza Type A (PCR) NEGATIVE (Negative) Influenza Type B (PCR) NEGATIVE (Negative) RSV RNA Qual (PCR) NEGATIVE (Negative) SARS-CoV-2 RNA (RT-PCR) NEGATIVE (Negative) S. pyogenes GrpA SURAJ Negative (Negative) Independent Interpretation I performed an independent interpretation of an: EKG and Plain X-Ray Interpretation: EKG with normal sinus rhythm, ventricular rate 89 beats per minute, normal [place] interval, normal QTC, no ST segment elevation or depression. Chest x-ray is clear without evidence of pneumothorax or pneumonia Radiology Impression Discussion of test interpretation with radiology: I have reviewed the radiologist's reading. Radiologist Impression: EXAMINATION: XR CHEST CLINICAL INFORMATION: Chest pain COMPARISON: 05/16/2019 TECHNIQUE: Frontal view of the chest was obtained. FINDINGS: No significant abnormality is noted involving the heart, lungs, mediastinum, bony thorax or soft tissues. XR/XR chest 1V IMPRESSION: Unremarkable examination. External Record Review External record reviewed: Outpatient record, Prior outpatient labs and Prior outpatient radiology Tests considered The following testing was considered but not selected: CT angiogram was considered to definitively rule out pulmonary embolism however patient's clinical presentation and workup is less consistent with PE Prescription Management I considered prescription management with: Pain Medication Critical Care Time Critical Care Time Critical Care Time: No Discharge Plan Discharge Clinical Impression: Atypical chest pain Patient Disposition: Home, Self-Care Instructions: Noncardiac Chest Pain (ED) Additional Instructions: Your lab workup, chest x-ray, EKG done today were all reassuring and unremarkable. Your pain is most likely muscular in nature. Recommend taking the prescribed anti-inflammatory medication as directed. Take it with food. Also recommend adding Tylenol 1000 mg every 6-8 hours as needed. Follow-up with your primary care doctor. If you develop new or worsening symptoms call 911 or come back to the ER for further evaluation. Prescriptions: New naproxen [Naprosyn] 500 mg tablet 500 mg PO BID Qty: 14 0RF No Action ketoconazole 2 % shampoo 1 appl topical 3XW PRN (Reason: seborrhea) Qty: 120 0RF multivitamin Tablet 1 tab PO DAILY 90 Days Qty: 90 3RF norelgestromin-ethin.estradiol [Xulane] 150-35 mcg/24 hr patch weekly transdermal Interventions: ED Discharge Assessment Last Done: 08/10/23 18:44 Discharge Date/Time: 08/10/23 18:44 Print Language: Vincentian
[2023-08-10 16:58] LABS: MANUAL DIFF FLAG NO
[2023-08-10 17:02] LABS: Basophils Absolute Auto 0.1 X10*3/uL (0.0-0.2); Basophils Percent Auto 0.8 % (0-2); Eosinophils Absolute Auto 0.4 X10*3/uL (0.0-0.4); Eosinophils Percent Auto 6.1 % (0-4); Hematocrit 35.7 % (37.0-47.0); Hemoglobin 11.7 g/dl (12.0-16.0); Imm Gran Abs Auto 0.01 X10*3/uL (0.00-0.03); Imm Gran Pct Auto 0.2 % (0.0-0.4); Lymphocytes Absolute Auto 2.3 X10*3/uL (1.2-4.9); Mean Corpuscular HGB Conc 32.8 g/dl (31.0-35.0); Mean Corpuscular Hemoglobin 27.8 pg (27.0-33.0); Mean Corpuscular Volume 84.8 fL (80.0-98.0); Mean Platelet Volume 9.3 fL (9.4-12.3); Monocytes Absolute Auto 0.4 X10*3/uL (0.1-1.2); Monocytes Percent Auto 6.7 % (2-11); Neutrophils Absolute Auto 3.4 x10*3/uL (2.0-8.3); Neutrophils Percent Auto 51.2 % (45-73); Platelet Count 417 X10*3/uL (160-400); Red Blood Count 4.21 X10*6/uL (4.20-5.50); Red Cell Distribution Width 14.5 % (11.0-16.0); White Blood Count 6.6 X10*3/uL (4.8-10.8)
[2023-08-10 17:11] LABS: IDNOW Serial# 08D9AD1C; Strep A Nucleic Acid Negative (Negative)
[2023-08-10 17:13] LABS: Prothrombin Time 12.2 SEC (11.1-13.3)
--- NOTE | 2023-08-10 17:25 | PC.NURSE ---
Patient reports left sided breast/chest pain that started two weeks ago and has become a constant 8/10 pain. States that had a breast implant in the past and that could be what is causing the pain.
[2023-08-10 17:32] LABS: Alanine Aminotransferase 12 U/L (0-31); Albumin Level 4.6 g/dL (3.5-5.0); Alkaline Phosphatase 75 U/L (39-117); Anion Gap 13 (12-20); Aspartate Amino Transferase 16 U/L (5-31); Bilirubin Total 0.6 mg/dL (0.0-1.0); Blood Urea Nitrogen 19 mg/dL (9-16); Calcium 9.2 mg/dL (8.4-10.2); Carbon Dioxide 23 mmol/L (22-29); Chloride 106 mmol/L (96-108); Creatinine Clr Calc Pharmacy 83.9; Estimated Glomerular Filt Rate > 60; Glucose Random 86 mg/dL (60-115); Potassium 3.8 mmol/L (3.3-5.1); Sodium 138 mmol/L (135-145); Total Protein 8.2 g/dL (6.5-8.0)
[2023-08-10 17:35] LABS: Troponin-I High Sensitivity < 2.7 ng/L (<3.5-17.0)
[2023-08-10 17:43] LABS: Influenza A PCR NEGATIVE (Negative); Influenza B PCR NEGATIVE (Negative); Resp Syncy Virus RNA Qual PCR NEGATIVE (Negative); SARS COV2 PCR INHOUSE NEGATIVE (Negative)
[2023-08-10 17:48] LABS: TSH reflex Free T4 0.83 uIU/mL (0.32-4.0)
[2023-08-10 18:23] LABS: D Dimer High Sensitivity < 150 NG/ML
[2023-08-10 18:44] VITALS: BP 125/80; PULSE 88; RESP 18; TEMP 36.3; O2SAT 98
== END 2023-08-10 18:44 | disposition home or self-care (01) ==
PROVIDERS: Physician Assistant; Emergency Provider Emergency Medicine; PCP Internal Medicine
DX: R07.89 Other chest pain (principal); R05.9 Cough, unspecified; R51.9 Headache, unspecified; Z79.899 Other long term (current) drug therapy; Z03.818 Encounter for observation for suspected exposure to other biological agents ruled out
CPT/HCPCS: 0241U; 71045; 80053; 84443; 84484; 85025; 85379; 85610; 85730; 87651; 93005; 99283; 99284

== ENCOUNTER → 2023-08-10 16:30 | Outpatient (BNV) | payer OTHER, SELFPAY | PROVIDERS: Emergency Provider Emergency Medicine; PCP Internal Medicine; Visit Provider Internal Medicine | DX: R07.9 Chest pain, unspecified (principal) | CPT/HCPCS: 93010 ==

== ENCOUNTER 2023-11-03 10:35 | Outpatient (AMB) | payer OTHER, SELFPAY ==
--- NOTE | 2023-11-03 11:31 | MHC.OFFWIV ---
Intake Vital Signs 11/03/23 11:32 Height 5 ft 4 in Weight 102 lb BMI 17.5 BP 110/70 Blood Pressure Location Lt brachial Position Sitting Pulse 83 Pulse Source Pulse Oximeter Temp 98.2 F Temp Source Oral Pulse Oximetry (%) 100 Oxygen Delivery Method Room Air Intake Visit Reasons: EP-cough, rt low side belly pain Intake Note: Patient here for right lower pelvic pain that started yesterday and is unsure its from coughing so much which she is already being treated for. Patient Tobacco Use Status: Never used Tobacco Is last menstrual period known: Yes Last menstrual period: 10/28/23 Allergies No Known Allergies Allergy (Verified 11/03/23 11:34) Do you need a note to return to daycare/school/sports/work: No HPI HPI Comments History of Present Illness Details This is a 28-year-old female with no stated past medical history and surgical history of x1 presenting for evaluation of right lower quadrant pain that she has had for the past 1 day. Patient is currently being treated for a bacterial pneumonia with azithromycin and prednisone that she received from an urgent care center in [facility]. Patient states she noted yesterday that when she coughs she has pain in her right lower quadrant that is worsening. Patient denies having any fevers, chills, dysuria, hematuria or vaginal discharge. Patient's last sexual intercourse was 1 month ago and her last normal menstrual period started on October 28, 2023. Patient is taking Tylenol without relief of her abdominal pain. [facility] Medical History Migraine Underweight Surgical History History of elective breast augmentation Family History Father No problems noted. Mother No problems noted. Maternal Grandmother Diabetes Paternal Grandmother Diabetes Maternal Uncle Cancer Social History Housing: Apartment Alcohol intake: never Patient Tobacco Use Status: Never used Tobacco e-Cigarette/Vaping Use: Never Used Second Hand Smoke Exposure: Yes service: No Current occupational status: employed Current occupation: paraprofessional Cognitive needs: No Hearing needs: No Vision needs: Yes Female Reproductive History Menstrual Date of last menstrual period: 10/28/23 Review of Systems Const All systems reviewed & are unremarkable except as noted in HPI and below Denies chills and Denies fever(s) Eyes Reports no additional complaints ENT Reports no additional complaints Card Reports no additional complaints Resp Reports cough GI Reports abdominal pain (RLQ), Denies change in bowel habits, Denies GI cramping, Denies diarrhea, Denies nausea and Denies vomiting Reports no additional complaints, Denies hematuria, Denies difficulty voiding, Denies dysmenorrhea and Denies urinary urgency Musc Reports no additional complaints Skin/Breast Reports system reviewed and no additional complaints, except as documented Neuro Reports no additional complaints Psych Reports no additional complaints Physical Exam Vital Signs: Last Vital Signs Temp 98.2 F 11/03/23 11:32 Pulse 83 11/03/23 11:32 BP 110/70 11/03/23 11:32 Pulse Ox 100 11/03/23 11:32 Oxygen Delivery Method Room Air 11/03/23 11:32 BMI result Body Mass Index 17.5 Const General: cooperative, healthy appearing, comfortable, no acute distress, well developed, alert, awake and Physically active; No ill appearing Nutritional Appearance: thin Orientation/consciousness: patient oriented x3 Limitations: no limitations Cardio Rate: regular rate Rhythm: regular rhythm GI Palpation (GI): Soft to palpation, Tenderness to palpation present (GI) in the RLQ, at McBurney's point and suprapubicly and Bladder palpation abnormal Auscultation: normal bowel sounds General: Yes Bladder palpation abnormal tender, Yes CVA tenderness and Yes no CVA tenderness Back/Spine/Pelvis Back: no CVA tenderness and CVA tenderness Skin General skin exam: no rashes or lesions noted Neuro General: patient oriented x3 Psych Appearance: grossly normal Mental Status: mental status grossly normal Insight: Good insight present (Psych) Judgement: Good judgement present (Psych) Results AMB Urinalysis, Automated UA Leukoctes 0 Yamil/uL Last Edit by COLETTE Maciel on 11/03/23 12:01 UA Nitrite Negative Last Edit by COLETTE Maciel on 11/03/23 12:01 UA Urobilinogen 0.2 mg/dL Last Edit by COLETTE Maciel on 11/03/23 12:01 UA Protein 15 mg/dL [facility] Edit [facility] on 11/03/23 12:01 UA pH 6.0 Last Edit by COLETTE Maciel on 11/03/23 12:01 UA Blood 0 Simone/uL Last Edit by COLETTE Maciel on 11/03/23 12:01 UA Specific [place] 1.015 Last Edit by COLETTE Maciel on 11/03/23 12:01 UA Ketone Positive Last Edit by COLETTE Maciel on 11/03/23 12:01 UA Bilirubin 1 mg/dL Last Edit [facility] on 11/03/23 12:01 UA Glucose 0 mg/dL Last Edit [facility] on 11/03/23 12:01 Results Reviewed Results Reviewed: Urinalysis reviewed - there is no evidence of an acute infection. Assessment & Plan Assessment & Plan (1) Right lower quadrant abdominal pain: Comment: Patient denies any dysuria, vaginal discharge or dyspareunia. Patient is presenting with right lower quadrant abdominal pain and will be directed to the emergency department for further evaluation and care. Code(s): R10.31 - Right lower quadrant pain Plan: Patient will go to the emergency department for further evaluation of her right lower quadrant abdominal pain. Orders: Orders AMB Urinalysis Auto Microscop. Today R10.9 - Unspecified abdominal pain AMB Urinalysis Automated Today Z13.9 - Encounter for screening, unspecified Coding Level of Care Code Est Pt Level 3 (36913) Diagnoses Right lower quadrant abdominal pain R10.31 Time Spent (min) 25
[2023-11-03 11:32] VITALS: BP 110/70; PULSE 83; TEMP 36.8; O2SAT 100; BMI 17.5
== END 2023-11-03 12:37 | disposition home or self-care (01) ==
PROVIDERS: PCP Internal Medicine; Visit Provider Physician Assistant
DX: R10.31 Right lower quadrant pain (principal); Z13.9 Encounter for screening, unspecified

== ENCOUNTER → 2023-11-03 10:35 | Outpatient (BNVA) | payer OTHER, SELFPAY | PROVIDERS: PCP Internal Medicine | DX: R10.31 Right lower quadrant pain (principal) | CPT/HCPCS: 81003; 99212 ==

== ENCOUNTER 2023-11-03 16:47 | Emergency (ER) | payer OTHER, SELFPAY ==
[2023-11-03 17:01] VITALS: BP 145/78; PULSE 112; RESP 20; TEMP 36.8; O2SAT 100; BMI 17.3
--- NOTE | 2023-11-03 17:01 | ED.ABDPAIN ---
HPI - Abdominal Pain General Chief Complaint: Abdominal Pain Stated Complaint: lower R abd pain Time Seen by Provider: 11/03/23 22:02 Source: patient and family Mode of arrival: ambulatory Limitations: no limitations History of Present Illness ED Provider: Dr. Short HPI narrative: Patient is a 28yo female with history of migraine and anxiety who presents with RLQ pain with coughing. Patient states she has been coughing for a week and now every time she coughs she has pain Related Data Home Medications ?Medication ?Instructions ?Recorded ?Confirmed norelgestromin 150 mcg-e.estradiol patch transdermal 05/23/23 07/25/23 35 mcg/24 hr weekly transderm patch (Xulane) azithromycin 250 mg tablet 250 mg PO DIRECTED 11/03/23 prednisone 20 mg tablet 20 mg PO BID 11/03/23 Previous Rx's ?Medication ?Instructions ?Recorded ketoconazole 2 % shampoo 1 appl topical 3XW PRN seborrhea 07/25/23 #120 mL multivitamin 1 tab PO DAILY 90 days #90 tabs 07/25/23 naproxen 500 mg tablet (Naprosyn) 500 mg PO BID #14 tabs 08/10/23 pantoprazole 40 mg tablet,delayed 40 mg PO DAILY #20 tabs 11/03/23 release (Protonix) ecezzlfxaposg-UF-xdfhjkxacfu 5 10 ml PO Q4H #473 mL 11/03/23 mg-10 mg-100 mg/5 mL oral liquid Allergies Allergy/AdvReac Type Severity Reaction Status Date / Time No Known Allergies Allergy Verified 11/03/23 17:04 Review of Systems Review of Systems Yes all other systems are reviewed and are negative Denies Sensory deficit (Neuro) [facility] Past Medical History Medical History Migraine Underweight Surgical History History of elective breast augmentation Family History Family History Father No problems noted. Mother No problems noted. Maternal Grandmother Diabetes Paternal Grandmother Diabetes Maternal Uncle Cancer Social History Social History Housing: Apartment Alcohol intake: never Patient Tobacco Use Status: Never used Tobacco e-Cigarette/Vaping Use: Never Used Second Hand Smoke Exposure: Yes Do you have a plan to hurt others: No Plan service: No Current occupational status: employed Current occupation: paraprofessional Cognitive needs: No Hearing needs: No Vision needs: Yes Physical Exam ED Vital Signs: Vital Signs - 24 hr 11/03/23 17:01 11/03/23 22:19 Temperature 98.2 F 97.8 F Pulse Rate 112 H 83 Respiratory Rate 20 14 Blood Pressure 145/78 H 104/63 Pulse Oximetry 100 100 Oxygen Delivery Method Room Air Room Air BMI result Body Mass Index 17.3 Const Other: coughing General: healthy appearing Nutritional Appearance: average body habitus Orientation/consciousness: oriented to person and patient oriented x3 Limitations: no limitations HENMT Head: Yes normal to inspection Ears: external ears normal General nose exam: Normal external nose present Mouth: Normal oral and palatal mucosa present and oropharynx normal Throat: Yes posterior oropharynx normal Eyes General: appearance normal, both eyes and all related structures Neck Neck: Yes normal visual inspection Chest Chest palpation & inspection: normal inspection of the chest Resp Auscultation: clear to auscultation bilaterally Cardio Jugular venous distension: no JVD Rate: regular rate Rhythm: regular rhythm Heart sounds: S1 normal heart sound present and S2 normal heart sound present GI Other: no bulging in the right lower quadrant Inspection: Yes normal to inspection Palpation (GI): Soft to palpation, nontender and No hepatosplenomegaly present Auscultation: normal bowel sounds General: Yes no CVA tenderness Back/Spine/Pelvis Back: no CVA tenderness Skin General skin exam: no rashes or lesions noted Neuro General: oriented to person and patient oriented x3 Cranial nerves: Yes CN's II-XII intact bilaterally Motor exam (neuro): 5/5 motor strength present throughout Sensory Exam: No Sensory deficit (Neuro) Extrem General: Yes normal to inspection Psych Appearance: grossly normal Course Course Course Narrative: This is a Rapid Medical Exam performed in triage by Anila Salmon PA-C. Full HPI, ROS and PE to be performed by primary ED provider. 28 yo F w/pmhx anxiety presenting to the ED c/o cough x1 week & now with right suprapubic abdominal pain x yesterday, worse with coughing. Admits to diarrhea. denies N/V, melena, brbpr, vaginal bleeding/discharge. LMP 10/27 PE: Tachycardic, actively coughing, lungs CTA, abdomen soft nontender Plan: EKG, labs, UA, viral testing Reevaluation(s) Reevaluation #1: Patient with viral URI, now with abdominal wall strain with coughing, no hernia appreciated Time: 22:17 Medical Decision Making Differential Diagnosis Differential Diagnoses: The differential diagnosis associated with the presentation includes (appendicitis, ovarian cyst, pneumonia, flu covid rsv, hernia) Admission/Observation Consideration of admission/observation: Escalation of care including admission/observation considered (upon arrival admission was considered) Lab Data 11/03/23 17:28 11/03/23 17:28 Labs: Lab Results 11/03/23 Range/Units 17:28 WBC 7.0 (4.8-10.8) X10*3/uL RBC 4.08 L (4.20-5.50) X10*6/uL Hgb 11.3 L (12.0-16.0) g/dl Hct 34.8 L (37.0-47.0) % MCV 85.3 (80.0-98.0) fL MCH 27.7 (27.0-33.0) pg MCHC 32.5 (31.0-35.0) g/dl RDW 14.3 (11.0-16.0) % Plt Count 415 H (160-400) X10*3/uL MPV 9.5 (9.4-12.3) fL Immature Gran % (Auto) 1.3 H (0.0-0.4) % Neut % (Auto) 84.4 H (45-73) % Lymph % (Auto) 13.2 L (20-40) % [place] % (Auto) 1.0 L (2-11) % Eos % (Auto) 0.0 (0-4) % Baso % (Auto) 0.1 (0-2) % Lymph # (Auto) 0.9 L (1.2-4.9) X10*3/uL [place] # (Auto) 0.1 (0.1-1.2) X10*3/uL Eos # (Auto) 0.0 (0.0-0.4) X10*3/uL Baso # (Auto) 0.0 (0.0-0.2) X10*3/uL Abs Immat Gran (auto) 0.09 H (0.00-0.03) X10*3/uL Absolute Neuts (auto) 5.9 (2.0-8.3) x10*3/uL Absolute Nucleated RBC 0.000 (0.0-0.012) X10*3/uL Nucleated RBC % (auto) 0.0 (0.0-0.2) /100WBC Sodium 141 (135-145) mmol/L Potassium 4.1 (3.3-5.1) mmol/L Chloride 107 (96-108) mmol/L Carbon Dioxide 24 (22-29) mmol/L Anion Gap 14 (12-20) BUN 18 H (9-16) mg/dL Creatinine 0.75 (0.5-1.4) mg/dL Estim Creat Clear Calc 82.1 Estimated GFR > 60 Random Glucose 135 H (60-115) mg/dL Calcium 9.7 (8.4-10.2) mg/dL Magnesium 2.2 (1.6-2.6) mg/dL Total Bilirubin 0.2 (0.0-1.0) mg/dL Direct Bilirubin < 0.2 (0.0-0.5) mg/dL AST 19 (5-31) U/L ALT 16 (0-31) U/L Alkaline Phosphatase 66 (39-117) U/L Total Protein 8.2 H (6.5-8.0) g/dL Albumin 4.6 (3.5-5.0) g/dL Lipase 25 (8-78) U/L Urine Color Yellow Urine Appearance Clear Urine pH 6.5 (5.0-9.0) Ur Specific [place] 1.025 (1.005-1.025) Urine Protein Trace (Neg-Trace) mg/dL Urine Glucose (UA) Negative (Negative) mg/dL Urine Ketones Trace (Negative) mg/dL Urine Blood Negative (Negative) Urine Nitrite Negative (Negative) Ur Leukocyte Esterase Negative (Negative) Urine Test NEGATIVE (NEGATIVE) Influenza Type A (PCR) NEGATIVE (Negative) Influenza Type B (PCR) NEGATIVE (Negative) RSV RNA Qual (PCR) NEGATIVE (Negative) SARS-CoV-2 RNA (RT-PCR) NEGATIVE (Negative) Independent Interpretation I performed an independent interpretation of an: EKG (sinus tachycardia, rate 115, no st or twave changes) Independent Historian Clinical information obtained from an independent historian. History obtained from or confirmed by: Spouse and Parent External Record Review External record reviewed: Outpatient record Tests considered The following testing was considered but not selected: CXR: considered but lungs clear, pulse ox normal. Abd/Pel CT considered but abdomen soft and pain is with coughing Prescription Management I considered prescription management with: Antibiotic (no evidence of pneumonia) Discharge Plan Discharge Clinical Impression: Upper respiratory infection, Abdominal wall strain Patient Disposition: Home, Self-Care Instructions: Muscle Strain (ED), Upper Respiratory Infection (ED) Prescriptions: New pantoprazole [Protonix] 40 mg tablet,delayed release (DR/EC) 40 mg PO DAILY Qty: 20 0RF xcdhwdtsrvcuy-WI-ltsrquxbzrx 5-10-100 mg/5 mL liquid 10 ml PO Q4H Qty: 473 0RF No Action naproxen [Naprosyn] 500 mg tablet 500 mg PO BID Qty: 14 0RF ketoconazole 2 % shampoo 1 appl topical 3XW PRN (Reason: seborrhea) Qty: 120 0RF multivitamin Tablet 1 tab PO DAILY 90 Days Qty: 90 3RF norelgestromin-ethin.estradiol [Xulane] 150-35 mcg/24 hr patch weekly transdermal prednisone 20 mg tablet 20 mg PO BID azithromycin 250 mg tablet 250 mg PO DIRECTED Referrals: Kiran Ayoub MD [Primary Care Provider] - 3 days Print Language: Egyptian
--- NOTE | 2023-11-03 17:05 | ECG_ITS ---
Test Reason : tachycardia Blood Pressure : / mmHG Vent. Rate : 115 BPM Atrial Rate : 115 BPM P-R Int : 124 ms QRS Dur : 064 ms QT Int : 300 ms P-R-T Axes : 076 052 021 degrees QTc Int : 415 ms Sinus tachycardia Otherwise normal ECG When compared with ECG of 10-AUG-2023 16:30, Heart rate has increased Referred By: Anila Salmon Electronically Signed By:MARTHA CHRISTENSEN
[2023-11-03 17:37] LABS: MANUAL DIFF FLAG NO
[2023-11-03 17:40] LABS: Appearance Urine Clear; Color Urine Yellow; Glucose Urine UA Negative (Negative); Leukocyte Esterase Urine Negative (Negative); Nitrite Urine Negative (Negative); PH 6.5 (5.0-9.0); Specific Gravity - Urine 1.025 (1.005-1.025); Urine Blood Negative (Negative); Urine Ketones Trace mg/dL (Negative); Urine Protein Trace mg/dL (Neg-Trace)
[2023-11-03 17:41] LABS: UPreg QC Valid YES; Urine Pregnancy NEGATIVE (NEGATIVE)
[2023-11-03 17:46] LABS: Basophils Percent Auto 0.1 % (0-2); Hematocrit 34.8 % (37.0-47.0); Hemoglobin 11.3 g/dl (12.0-16.0); Imm Gran Abs Auto 0.09 X10*3/uL (0.00-0.03); Imm Gran Pct Auto 1.3 % (0.0-0.4); Lymphocytes Absolute Auto 0.9 X10*3/uL (1.2-4.9); Lymphocytes Percent Auto 13.2 % (20-40); Mean Corpuscular HGB Conc 32.5 g/dl (31.0-35.0); Mean Corpuscular Hemoglobin 27.7 pg (27.0-33.0); Mean Corpuscular Volume 85.3 fL (80.0-98.0); Mean Platelet Volume 9.5 fL (9.4-12.3); Monocytes Absolute Auto 0.1 X10*3/uL (0.1-1.2); Neutrophils Absolute Auto 5.9 x10*3/uL (2.0-8.3); Neutrophils Percent Auto 84.4 % (45-73); Platelet Count 415 X10*3/uL (160-400); Red Blood Count 4.08 X10*6/uL (4.20-5.50); Red Cell Distribution Width 14.3 % (11.0-16.0)
[2023-11-03 17:56] LABS: Alanine Aminotransferase 16 U/L (0-31); Albumin Level 4.6 g/dL (3.5-5.0); Alkaline Phosphatase 66 U/L (39-117); Anion Gap 14 (12-20); Aspartate Amino Transferase 19 U/L (5-31); Bilirubin Direct < 0.2 mg/dL (0.0-0.5); Bilirubin Total 0.2 mg/dL (0.0-1.0); Blood Urea Nitrogen 18 mg/dL (9-16); Calcium 9.7 mg/dL (8.4-10.2); Carbon Dioxide 24 mmol/L (22-29); Chloride 107 mmol/L (96-108); Creatinine Clr Calc Pharmacy 82.1; Estimated Glomerular Filt Rate > 60; Glucose Random 135 mg/dL (60-115); Lipase 25 U/L (8-78); Magnesium 2.2 mg/dL (1.6-2.6); Potassium 4.1 mmol/L (3.3-5.1); Sodium 141 mmol/L (135-145); Total Protein 8.2 g/dL (6.5-8.0)
[2023-11-03 18:19] LABS: Influenza A PCR NEGATIVE (Negative); Influenza B PCR NEGATIVE (Negative); Resp Syncy Virus RNA Qual PCR NEGATIVE (Negative); SARS COV2 PCR INHOUSE NEGATIVE (Negative)
[2023-11-03 22:19] VITALS: BP 104/63; PULSE 83; RESP 14; TEMP 36.6; O2SAT 100
[2023-11-03 22:25] VITALS: BP 144/78; PULSE 93; RESP 22; TEMP 36.8; O2SAT 97
[2023-11-03] MEDS: NaPROXEN 500 MG TABLET PO (22:29)
[2023-11-03] MEDS: guaiFENesin 200 MG/10 ML 10 ML LIQUID PO (22:29)
[2023-11-03 22:41] VITALS: BP 144/78; PULSE 93; RESP 22; TEMP 36.8; O2SAT 97
== END 2023-11-03 22:44 | disposition home or self-care (01) ==
PROVIDERS: Physician Assistant; Emergency Provider Emergency Medicine; PCP Internal Medicine
DX: J06.9 Acute upper respiratory infection, unspecified (principal); R05.9 Cough, unspecified; S39.011A Strain of muscle, fascia and tendon of abdomen, initial encounter; X50.9XXA Other and unspecified overexertion or strenuous movements or postures, initial encounter; Y93.89 Activity, other specified; Y92.9 Unspecified place or not applicable; Y99.9 Unspecified external cause status; Z03.818 Encounter for observation for suspected exposure to other biological agents ruled out
CPT/HCPCS: 0241U; 36415; 80048; 80076; 81003; 81025; 83690; 83735; 85025; 93005; 99283; 99285

== ENCOUNTER 2023-11-30 10:46 | Outpatient (REF) | payer OTHER, SELFPAY ==
[2023-11-30 11:26] LABS: MANUAL DIFF FLAG NO
[2023-11-30 11:47] LABS: Basophils Absolute Auto 0.1 X10*3/uL (0.0-0.2); Basophils Percent Auto 1.1 % (0-2); Eosinophils Absolute Auto 0.2 X10*3/uL (0.0-0.4); Hematocrit 32.7 % (37.0-47.0); Imm Gran Abs Auto 0.01 X10*3/uL (0.00-0.03); Imm Gran Pct Auto 0.2 % (0.0-0.4); Lymphocytes Absolute Auto 1.7 X10*3/uL (1.2-4.9); Lymphocytes Percent Auto 38.3 % (20-40); Mean Corpuscular HGB Conc 33.6 g/dl (31.0-35.0); Mean Corpuscular Hemoglobin 28.8 pg (27.0-33.0); Mean Corpuscular Volume 85.6 fL (80.0-98.0); Mean Platelet Volume 9.1 fL (9.4-12.3); Monocytes Absolute Auto 0.4 X10*3/uL (0.1-1.2); Monocytes Percent Auto 7.9 % (2-11); Neutrophils Absolute Auto 2.1 x10*3/uL (2.0-8.3); Neutrophils Percent Auto 47.5 % (45-73); Platelet Count 361 X10*3/uL (160-400); Red Blood Count 3.82 X10*6/uL (4.20-5.50); Red Cell Distribution Width 14.9 % (11.0-16.0); White Blood Count 4.4 X10*3/uL (4.8-10.8)
[2023-11-30 12:27] LABS: Alanine Aminotransferase 18 U/L (0-31); Albumin Level 4.4 g/dL (3.5-5.0); Alkaline Phosphatase 63 U/L (39-117); Anion Gap 10 (12-20); Aspartate Amino Transferase 25 U/L (5-31); Bilirubin Total 0.6 mg/dL (0.0-1.0); Blood Urea Nitrogen 18 mg/dL (9-16); Calcium 9.5 mg/dL (8.4-10.2); Carbon Dioxide 24 mmol/L (22-29); Chloride 108 mmol/L (96-108); Estimated Glomerular Filt Rate > 60; Glucose Random 84 mg/dL (60-115); Potassium 4.2 mmol/L (3.3-5.1); Sodium 138 mmol/L (135-145); Total Protein 7.8 g/dL (6.5-8.0)
[2023-11-30 12:33] LABS: Erythrocyte Sedimentation Rate 34 MM/HR (0-20)
[2023-11-30 12:44] LABS: TSH reflex Free T4 0.71 uIU/mL (0.32-4.0)
== END 2023-11-30 10:47 | disposition home or self-care (01) ==
LOC: HO.LAB 10:46
PROVIDERS: PCP Internal Medicine; Visit Provider Internal Medicine
DX: D64.9 Anemia, unspecified (principal); R63.4 Abnormal weight loss; M79.7 Fibromyalgia
CPT/HCPCS: 36415; 80053; 84443; 85025; 85652

== ENCOUNTER 2024-01-24 15:53 | Outpatient (AMB) | payer OTHER, SELFPAY ==
[2024-01-24 15:58] VITALS: BP 96/52; PULSE 88; O2SAT 99; BMI 17.9
--- NOTE | 2024-01-24 15:58 | MHC.PC.OV ---
Vital Signs 01/24/24 15:58 Height 5 ft 4 in Weight 104 lb 4 oz BMI 17.9 BP 96/52 L Blood Pressure Location Lt brachial Position Sitting Pulse 88 Pulse Source Pulse Oximeter Pulse Oximetry (%) 99 Oxygen Delivery Method Room Air Intake Visit Reasons: 6mth f/u Barrel Rifler Button Required: No Allergies No Known Allergies Allergy (Verified 01/24/24 16:41) Medication List - Last Reconciled 01/25/24 by Kiran Ayoub MD ketoconazole 2% 1 appl topical 3XW PRN multivitamin 1 tab PO DAILY 90 days naproxen (Naprosyn) 500 mg PO BID norelgestromin-ethin.estradiol 150-35 mcg/24 hr (Xulane) patches transdermal pantoprazole (Protonix) 40 mg PO DAILY Tobacco use date assessed: 07/25/23 Dental Screening Dental Screen Date: 07/25/23 HPI 6mth f/u HPI Details Patient is a 26 year female with significant medical history of keratoconus of both eyes, migraine, and abdominal pain. The patient presents today for a follow-up visit. The patient reports that today she is feeling better but yesterday she had a 10/10 headache. She reports that she did not notice any triggers but she has not been sleeping well because she has a 1-year-old son that is keeps her up. She reports that yesterday she took advil 500mg x2 with some relief, however, the pain lasted almost 24 hours before completely subsiding. She denies nausea, denies dizziness, denies numbness or tingling, no changes in her speech or weakness. Reports drinking about 24 oz of juices/day, but she does not drink water. Patient denies caffeine and alcohol. Today: reports that her vision feels sensitive to the lights, denies any cold sx, but endorse her throat feels a little itchy, like she needs to cough something up, but this is very mild, per patient. Reports that she does have mild environmental allergies at times. [facility]LY [facility] Medical History Migraine Underweight Surgical History History of elective breast augmentation Family History Father No problems noted. Mother No problems noted. Maternal Grandmother Diabetes Paternal Grandmother Diabetes Maternal Uncle Cancer Social History Housing: Apartment Alcohol intake: never Patient Tobacco Use Status: Never used Tobacco e-Cigarette/Vaping Use: Never Used Second Hand Smoke Exposure: Yes service: No Current occupational status: employed Current occupation: paraprofessional Cognitive needs: No Hearing needs: No Vision needs: Yes Questionnaire PHQ-9 Over the last 2 weeks, how often have you been bothered by any of the following problems? 1. Little interest or pleasure in doing things: not at all 2. Feeling down, depressed, or hopeless: not at all 3. Trouble falling or staying asleep, or sleeping too much: not at all 4. Feeling tired or having little energy: not at all 5. Poor appetite or overeating: not at all 6. Feeling bad about yourself - or that you are a failure or have let yourself or your family down: not at all 7. Trouble concentrating on things, such as reading the newspaper or watching television: not at all 8. Moving or speaking so slowly that other people could have noticed. Or the opposite - being so fidgety or restless that you have been moving around a lot more than usual: not at all 9. Thoughts that you would be better off or of hurting yourself in some way: not at all Total score: 0 Depression Screening Interpretation: Negative Depression Screening Done: Yes 90197 - PHQ-9 Billing: Yes Source: Developed by Drs. Tejinder Ba, Keely Ordonez, Javier Aguirre and colleagues, with an educational hansel from [employer]. Thrive Questionnaire Date Thrive assessed: 01/24/24 I am a: Patient What is your living situation today?: I have a steady place to live Within the past 12 months, did the food you bought not last and you didn't have the money to get more?: Never true Within the past 12 months, did you worry whether your food would run out before you got money to buy more?: Never true Do you have trouble paying for medicines?: No Do you have trouble getting transportation to medical appointments?: No Do you have trouble paying your heating and electricity bill?: No Do you have trouble taking care of your child, family member or friend?: No Do you have trouble with day-to-day activities such as bathing, preparing meals, shopping, managing finances, etc.?: No Are you currently unemployed and looking for a job?: No Are you interested in more education?: No Please select the resources that you would like help with: None THRIVE Score: 0 AUDIT C Alcohol Use Questionnaire (AUDIT-C) 1. How often do you have a drink containing alcohol?: Never 3. How often do you have six or more drinks on one occasion?: Never Total Score: 0 Score Reviewed/Action Taken: Yes NURYS-7 AMB Questionnaire NURYS-7 Date NURYS - 7 assessed: 01/24/24 Feeling nervous, anxious, or on edge: 0 = Not at all Not being able to stop or control worryin = Not at all Worrying too much about different things: 0 = Not at all Trouble relaxin = Not at all Being so restless that it is hard to sit still: 0 = Not at all Becoming easily annoyed or irritable: 0 = Not at all Feeling afraid as if something awful might happen: 0 = Not at all Total NURYS-7 score (0-4 normal; 5-9 mild; 10-14 moderate; 15-21 severe): 0 Source: Developed by Drs. Tejinder Ba, Keely Ordonez, Javier Aguirre and colleagues, with an educational hansel from [employer]. NURYS-7 Assessment Billing NURYS-7 Assessment Tool: NURYS-7 Assessment 48375 Review of Systems Const Details: Const Denies chills, Denies fatigue, Denies fever(s), +intermittent headaches and Denies weakness ENT Denies dizziness, + photosensitivity Card Denies chest pain, Denies lightheadedness, Denies dyspnea and Denies other (Palpitations) Resp Denies cough, Denies dyspnea, Denies wheezing and Denies other ( shortness of breath) GI Denies abdominal pain, Denies melena, Denies hematochezia, Denies change in bowel habits, Denies dyspepsia and Denies nausea Denies hematuria and Denies dysuria Musc Denies abnormal gait, Denies myalgias, Denies arthralgias, Denies numbness and Denies tingling Skin/Breast Denies rash, Denies unusual bruising and Denies wounds Neuro Denies abnormal gait, Denies dizziness, Denies headache(s), Denies memory loss, Denies numbness, Denies Sensory deficit (Neuro), Denies tingling and Denies weakness Psych Denies anxiety, Denies depression, Denies memory loss Endo Denies cold intolerance, Denies fatigue, Denies heat intolerance, Denies polydipsia and Denies polyuria Aller/Immun Denies wheezing Physical exam (Primary Care) Vital Signs: Last Vital Signs Pulse 88 01/24/24 15:58 BP 96/52 L 01/24/24 15:58 Pulse Ox 99 01/24/24 15:58 Oxygen Delivery Method Room Air 01/24/24 15:58 BMI result Body Mass Index 17.9 Tobacco/Smoking Status: Tobacco use Status Tobacco use date assessed 07/25/23 01/24/24 16:02 Patient Tobacco Use Status Never used Tobacco 01/24/24 16:02 e-Cigarette/Vaping Use Never Used 01/24/24 16:02 PHQ-9: PHQ-9 Score PHQ-9: Total score 0 01/24/24 16:25 Depression Screening Interpretation: Negative Thrive Assessment: Date of Thrive Assessment Date Thrive assessed 01/24/24 01/24/24 16:02 Const Other: General: no acute distress and well developed Nutritional Appearance: well nourished Orientation/consciousness: patient oriented x3 HENMT Head: Yes normocephalic and Yes atraumatic Eyes General: appearance normal, both eyes and all related structures Pupils: Equal, round and reactive pupils present EOM: EOMs intact bilaterally Resp Effort & Inspection: normal respiratory effort Auscultation: clear to auscultation bilaterally Cardio Rate: regular rate Rhythm: regular rhythm Heart sounds: S1 normal heart sound present, S2 normal heart sound present, no gallops, no murmurs and no rubs GI Palpation (GI): No Abdominal aortic bruit present, Soft to palpation, nontender, No hepatosplenomegaly present and No Rebound tenderness present Auscultation: normal bowel sounds General: Yes no CVA tenderness Back/Spine/Pelvis Back: no CVA tenderness Cervical Spine: cervical ROM normal and No Cervical spine tenderness Thoracic/Lumbar Spine: thoraco-lumbar ROM normal, No pain with thoraco-lumbar ROM, No thoracic spinal tenderness and No lumbar spinal tenderness Extrem General: Yes normal to inspection, No edema and No calf tenderness Skin General: warm and dry. Normal skin color. Normal skin turgor Lesions: no lesions Rashes: no rashes Trauma: no lacerations or abrasions Wounds: no wounds Nails: normal Neuro General: patient oriented x3, gait normal and no focal neuro deficit Cranial nerves: Yes Equal, round and reactive pupils present Cognition (Neuro): normal cognition Gait exam (Neuro): Normal gait present Sensory Exam: No Sensory deficit (Neuro) Psych Appearance: grossly normal Affect: normal affect Attitude: cooperative Thought process: Normal thought process present Results Reviewed Results Reviewed: Laboratory Tests 11/30/23 11:25 WBC 4.4 L RBC 3.82 L Hgb 11.0 L Hct 32.7 L ESR 34 H Sodium 138 Potassium 4.2 Chloride 108 Carbon Dioxide 24 BUN 18 H Creatinine 0.72 Estimated GFR > 60 Random Glucose 84 AST 25 ALT 18 Alkaline Phosphatase 63 TSH 0.71 Coding Level of Care Code Tele Est Pt Level 3 (36785) Diagnoses Migraine without status migrainosus, not intractable, unspecified migraine type G43.909 Intractability: not intractable Migraine type: unspecified Status migrainosus presence: without status migrainosus Keratoconus of both eyes H18.603 Additional Codes NURYS-7 Assessment Billing - NURYS-7 Assessment Tool: NURYS-7 Assessment 10322 ([id number]) PHQ-9 - 13838 - PHQ-9 Billing: Yes ([id number]) Assessment & Plan Assessment & Plan (1) Migraine: Code(s): G43.909 - Migraine, unspecified, not intractable, without status migrainosus Category: Medical Qualifiers: Intractability: not intractable Migraine type: unspecified Status migrainosus presence: without status migrainosus Qualified Code(s): G43.909 - Migraine, unspecified, not intractable, without status migrainosus Plan: The patient reported severe headache yesterday, she took Advil twice with some relief, but the headache took almost 24 hours to completely resolve Sumatriptan 50mg prn ordered Reinforced avoid triggers, the patient was also encouraged to start drinking water and to consider taking magnesium otc at bedtime. The patient has a CPE scheduled for July, the patient was encouraged to call the office sooner for any concerns. (2) Keratoconus of both eyes: Code(s): H18.603 - Keratoconus, unspecified, bilateral Category: Medical Plan: The patient see a specialist in [place] and she is asking to be referred to someone closer. Referral made to [facility]. The patient was updated that they might not specialized in her condition. Plan To return as scheduled in July 2024 for her annual physical examination Orders: Orders TSH reflex Free T4 6 Months PauloELDER Worley G43.909 - Migraine, unspecified, not intractable, without status migrainosus, H18.603 - Keratoconus, unspecified, bilateral, Z00.00 - Encounter for general adult medical examination without abnormal findings UA CC w/rflx Micro + Cult 6 Months ELDER Akins G43.909 - Migraine, unspecified, not intractable, without status migrainosus, H18.603 - Keratoconus, unspecified, bilateral, Z00.00 - Encounter for general adult medical examination without abnormal findings Glucose Fasting 6 Months ELDER Akins G43.909 - Migraine, unspecified, not intractable, without status migrainosus, H18.603 - Keratoconus, unspecified, bilateral, Z00.00 - Encounter for general adult medical examination without abnormal findings Complete Blood Count Auto Diff 6 Months PauloELDER Worley G43.909 - Migraine, unspecified, not intractable, without status migrainosus, H18.603 - Keratoconus, unspecified, bilateral, Z00.00 - Encounter for general adult medical examination without abnormal findings Comprehensive [place]. Panel Fast 6 Months ELDER Akins G43.909 - Migraine, unspecified, not intractable, without status migrainosus, H18.603 - Keratoconus, unspecified, bilateral, Z00.00 - Encounter for general adult medical examination without abnormal findings Vitamin D 25-OH Total 6 Months ELDER Akins G43.909 - Migraine, unspecified, not intractable, without status migrainosus, H18.603 - Keratoconus, unspecified, bilateral, Z00.00 - Encounter for general adult medical examination without abnormal findings Referrals Ophthalmology Referral Paulo Coppola, [facility] [employer]-C H18.603 - Keratoconus, unspecified, bilateral Medications: New sumatriptan succinate take 1 tab at onset of headache; if no relief may repeat 1 tab after at least 2 hrs; max = 4 tabs/24 hr PO 10 tabs 2RF migraine headaches Kiran Ayoub MD G43.909 - Migraine, unspecified, not intractable, without status migrainosus
== END 2024-01-24 16:41 | disposition home or self-care (01) ==
PROVIDERS: PCP Internal Medicine
DX: G43.909 Migraine, unspecified, not intractable, without status migrainosus (principal); H18.603 Keratoconus, unspecified, bilateral

== ENCOUNTER → 2024-01-24 15:53 | Outpatient (BNVA) | payer OTHER, SELFPAY | PROVIDERS: PCP Internal Medicine; Visit Provider Internal Medicine | DX: G43.909 Migraine, unspecified, not intractable, without status migrainosus (principal); H18.603 Keratoconus, unspecified, bilateral | CPT/HCPCS: 96127; 99212 ==

== ENCOUNTER 2024-05-05 13:12 | Emergency (ER) | payer OTHER, SELFPAY ==
[2024-05-05 13:19] VITALS: BP 112/67; PULSE 124; RESP 18; TEMP 36.8; O2SAT 100; BMI 18.9
--- NOTE | 2024-05-05 13:20 | ED_ITS ---
HPI - General Adult General Chief complaint: Nausea/Vomiting/Diarrhea Stated complaint: flu like symptoms Time Seen by Provider: 05/05/24 13:36 Source: patient Mode of arrival: ambulatory History of Present Illness ED Provider: Lizette Tong APRN HPI narrative: this is a 28-year-old female who is previously healthy who presents to the ER with complaints of upper abdominal pain, vomiting, chills and body aches after eating pepperoni pizza yesterday. Patient reports some loose stools. She has had no constipation, urinary symptoms, cough, congestion, headache, neck pain, neck stiffness, skin rash. Patient is here with her son who has similar symptoms. Of note, today she has been able to drink some liquids. she last vomited last evening. Related Data Home Medications ?Medication ?Instructions ?Recorded ?Confirmed norelgestromin 150 mcg-e.estradiol patch transdermal 05/23/23 01/25/24 35 mcg/24 hr weekly transderm patch (Xulane) Previous Rx's ?Medication ?Instructions ?Recorded ketoconazole 2 % shampoo 1 appl topical 3XW PRN seborrhea 07/25/23 #120 mL multivitamin 1 tab PO DAILY 90 days #90 tabs 07/25/23 naproxen 500 mg tablet (Naprosyn) 500 mg PO BID #14 tabs 08/10/23 pantoprazole 40 mg tablet,delayed 40 mg PO DAILY #20 tabs 11/03/23 release (Protonix) sumatriptan succinate 50 mg tablet See Rx Instructions PO .COMPLEX 01/25/24 migraine headaches #10 tabs ondansetron 4 mg disintegrating 4 mg PO Q6H PRN nausea and 05/05/24 tablet vomiting #15 tabs Allergies Allergy/AdvReac Type Severity Reaction Status Date / Time No Known Allergies Allergy Verified 05/05/24 13:21 Review of Systems 2 Review of Systems: Yes all other systems are reviewed and are negative Constitutional: Constitutional: Reports no additional constitutional complaints, Reports body ache(s), Reports chills, Denies fever(s), Denies headache(s) and Denies weakness Eyes: Eyes: Reports no additional eye complaints and Denies change in vision ENT: Reports system reviewed and no additional complaints, except as documented, Denies dizziness, Denies headache(s), Denies nasal congestion, Denies nasal discharge and Denies neck pain Cardiovascular: Cardiovascular: Reports no additional cardiovascular complaints, Denies chest pain, Denies leg edema and Denies dyspnea Respiratory: Respiratory: Reports no additional respiratory complaints, Denies cough and Denies dyspnea Gastrointestinal: Gastrointestinal: Reports no additional gastrointestinal complaints, Reports abdominal pain, Denies diarrhea, Denies nausea and Reports vomiting Genitourinary: Genitourinary: Reports no additional female genitourinary complaints and Denies urinary incontinence Musculoskeletal: Musculoskeletal: Reports no additional musculoskeletal complaints, Denies back pain, Denies arthralgias, Denies joint swelling, Denies neck pain, Denies numbness and Denies tingling Integumentary/Breasts: Skin/Breast: Reports system reviewed and no additional complaints, except as docu and Denies rash Neurologic: Reports system reviewed and no additional complaints, except as documented, Denies Abnormal speech present, Denies dizziness, Denies headache(s), Denies numbness, Denies tingling and Denies weakness PMFSH Past Medical History Attestation statement: The following information was validated with the patient. Source: old records reviewed and nursing notes reviewed Medical History Migraine Underweight Surgical History History of elective breast augmentation Family History Family History Father No problems noted. Mother No problems noted. Maternal Grandmother Diabetes Paternal Grandmother Diabetes Maternal Uncle Cancer Social History Social History Housing: Apartment Alcohol intake: never Patient Tobacco Use Status: Never used Tobacco e-Cigarette/Vaping Use: Never Used Second Hand Smoke Exposure: Yes Advance Directives: No Advance Directives Information Provided: Yes Do you have a plan to hurt others: No Plan service: No Current occupational status: employed Current occupation: paraprofessional Cognitive needs: No Hearing needs: No Vision needs: Yes Physical Exam ED Vital Signs: Vital Signs - 24 hr 05/05/24 13:19 05/05/24 14:00 05/05/24 17:20 Temperature 98.3 F 98.1 F Pulse Rate 124 H 103 H 98 Respiratory Rate 18 16 20 Blood Pressure 112/67 102/55 L 98/59 L Pulse Oximetry 100 100 100 Oxygen Delivery Method Room Air Room Air Room Air 05/05/24 17:38 05/05/24 17:58 Temperature 98.0 F 98.0 F Pulse Rate 97 97 Respiratory Rate 16 16 Blood Pressure 104/60 104/60 Pulse Oximetry 100 100 Oxygen Delivery Method Room Air Room Air BMI result Body Mass Index 18.9 Const General: cooperative, healthy appearing, comfortable and no acute distress Orientation/consciousness: patient oriented x3 Limitations: no limitations HENMT Head: Yes normal to inspection Ears: hearing grossly normal bilaterally General nose exam: Normal external nose present Face and sinus: Yes normal facial exam Mouth: Normal oral and palatal mucosa present Throat: Yes posterior oropharynx normal Eyes General: appearance normal, both eyes and all related structures Pupils: Equal, round and reactive pupils present Neck Neck: Yes normal visual inspection Chest Chest palpation & inspection: normal inspection of the chest Resp Effort & Inspection: normal respiratory effort Auscultation: clear to auscultation bilaterally Cardio Rate: regular rate Rhythm: regular rhythm Peripheral pulses: Peripheral pulses 2+ throughout GI Inspection: Yes normal to inspection Palpation (GI): Soft to palpation, Tenderness to palpation present (GI) in the epigastrum; with no rebound tenderness and no guarding Auscultation: normal bowel sounds Back/Spine/Pelvis Thoracic/Lumbar Spine: thoracic and lumbar spine normal to inspection Skin General skin exam: no rashes or lesions noted Neuro General: patient oriented x3, no focal motor deficits and normal sensation to monofilament Cranial nerves: Yes Equal, round and reactive pupils present Cognition (Neuro): normal cognition Speech: No Abnormal speech present Gait exam (Neuro): Normal gait present Motor exam (neuro): 5/5 motor strength present throughout Extrem General: Yes normal to inspection Course Course Course Narrative: This is an RME performed by Benito Chapa CNP: Additional HPI, ROS, PE not included below will be deferred to primary provider. patient is a 28-year-old female who presents emergency department for evaluation of nausea vomiting soft stools since yesterday. Today only nauseous no further vomiting. Developed mid abdominal/ epigastric pain after vomiting described as a burning sensation. denies possibility for , LMP 1 month ago plan: Serum labs, urinalysis, hCG, viral serologies Reevaluation(s) Reevaluation #1: labs are unremarkable. Urine shows no signs of infection. Viral testing is negative. Patient tolerating p.o.. Feels much better. Likely viral gastroenteritis. Reviewed worrisome signs and symptoms of when to return to the emergency room. Comfortable plan for discharge home. Medications Administered Discontinued Medications Generic Name Dose Route Start Last Admin Trade Name Aliza PRN Reason Stop Dose Admin Acetaminophen 975 mg 05/05/24 15:54 05/05/24 16:12 Acetaminophen 325 Mg Tablet PO 05/05/24 15:55 975 mg ONCE ONE Administration Famotidine 20 mg 05/05/24 13:57 05/05/24 14:30 Famotidine/Pf 20 Mg/2 Ml Vial IVPUSH 05/05/24 13:58 20 mg ONCE ONE Administration Sodium Chloride 1,000 mls @ 999 mls/hr 05/05/24 13:57 05/05/24 15:30 Ns IV 05/05/24 14:57 Infused .Q1H1M STA Infusion Sodium Chloride 1,000 mls @ 999 mls/hr 05/05/24 15:54 05/05/24 17:13 Ns IV 05/05/24 16:54 Infused .Q1H1M STA Infusion Ondansetron HCl 4 mg 05/05/24 13:40 05/05/24 14:29 Ondansetron Odt 4 Mg Tab.Rapdis TRANSLINGU 05/05/24 13:41 4 mg ONCE ONE Administration Ondansetron HCl 4 mg 05/05/24 13:57 05/05/24 14:30 Ondansetron Hcl 4 Mg/2 Ml Vial IVPUSH 05/05/24 13:58 4 mg ONCE ONE Administration Medical Decision Making Medical Decision Making [facility] Narrative: this is a 28-year-old female who is previously healthy who presents to the ER with complaints of upper abdominal pain, vomiting, chills and body aches after eating pepperoni pizza yesterday. Patient reports some loose stools. She has had no constipation, urinary symptoms, cough, congestion, headache, neck pain, neck stiffness, skin rash. Patient is here with her son who has similar symptoms. Of note, today she has been able to drink some liquids. she last vomited last evening. Epigastric tender to palpate. No rebound or guarding. Patient has low-grade fever 99.4. She is tachycardic 124. She has tacky mucous membranes. Will obtain labs, UA, viral testing Will give IV fluids, antiemetic and PPI Differential Diagnosis Differential Diagnoses: The differential diagnosis associated with the presentation includes gastritis, gastroenteritis, influenza Doubt acute appendicitis, PID, TOA, ectopic , ovarian torsion with no focal abdominal pain, patient non toxic, tolerating po, normal labs Admission/Observation Consideration of admission/observation: Escalation of care including admission/observation considered Lab Data MDM Lab Attestation statement: I reviewed the patient's lab results. 05/05/24 13:27 05/05/24 13:27 Labs: Lab Results 05/05/24 05/05/24 05/05/24 Range/Units 13:27 13:28 16:51 WBC 7.8 (4.8-10.8) X10*3/uL RBC 3.93 L (4.20-5.50) X10*6/uL Hgb 11.4 L (12.0-16.0) g/dl Hct 33.8 L (37.0-47.0) % MCV 86.0 (80.0-98.0) fL MCH 29.0 (27.0-33.0) pg MCHC 33.7 (31.0-35.0) g/dl RDW 13.9 (11.0-16.0) % Plt Count 301 (160-400) X10*3/uL MPV 9.1 L (9.4-12.3) fL Immature Gran % (Auto) 0.1 (0.0-0.4) % Neut % (Auto) 85.3 H (45-73) % Lymph % (Auto) 7.5 L (20-40) % [facility] % (Auto) 6.6 (2-11) % Eos % (Auto) 0.4 (0-4) % Baso % (Auto) 0.1 (0-2) % Lymph # (Auto) 0.6 L (1.2-4.9) X10*3/uL [facility] # (Auto) 0.5 (0.1-1.2) X10*3/uL Eos # (Auto) 0.0 (0.0-0.4) X10*3/uL Baso # (Auto) 0.0 (0.0-0.2) X10*3/uL Abs Immat Gran (auto) 0.01 (0.00-0.03) X10*3/uL Absolute Neuts (auto) 6.6 (2.0-8.3) x10*3/uL Absolute Nucleated RBC 0.000 (0.0-0.012) X10*3/uL Nucleated RBC % (auto) 0.0 (0.0-0.2) /100WBC Sodium 138 (135-145) mmol/L Potassium 3.4 (3.3-5.1) mmol/L Chloride 106 (96-108) mmol/L Carbon Dioxide 22 (22-29) mmol/L Anion Gap 13 (12-20) BUN 24 H (9-16) mg/dL Creatinine 0.74 (0.5-1.4) mg/dL Estim Creat Clear Calc 90.7 Estimated GFR > 60 Random Glucose 112 (60-115) mg/dL Calcium 9.0 (8.4-10.2) mg/dL Total Bilirubin 1.3 H (0.0-1.0) mg/dL AST 22 (5-31) U/L ALT 13 (0-31) U/L Alkaline Phosphatase 63 (39-117) U/L Total Protein 8.0 (6.5-8.0) g/dL Albumin 4.7 (3.5-5.0) g/dL Lipase 21 (8-78) U/L Urine Color Yellow Urine Appearance Clear Urine pH 6.0 (5.0-9.0) Ur Specific [place] 1.015 (1.005-1.025) Urine Protein Negative (Neg-Trace) mg/dL Urine Glucose (UA) Negative (Negative) mg/dL Urine Ketones Trace (Negative) mg/dL Urine Blood Negative (Negative) Urine Nitrite Negative (Negative) Ur Leukocyte Esterase Negative (Negative) Urine Test NEGATIVE (NEGATIVE) Influenza Type A (PCR) NEGATIVE (Negative) Influenza Type B (PCR) NEGATIVE (Negative) RSV RNA Qual (PCR) NEGATIVE (Negative) SARS-CoV-2 RNA (RT-PCR) NEGATIVE (Negative) Tests considered The following testing was considered but not selected: no focal abdominal pain to suggest need for CT imaging Discharge Plan Discharge Clinical Impression: Gastroenteritis Patient Disposition: Home, Self-Care Instructions: Gastroenteritis (ED) Additional Instructions: Your blood work is reassuring Your urine shows no signs of infection Your test for flu, COVID and RSV are negative Start with clear liquids and advance her diet as tolerated alternate Motrin/Tylenol for pain/fever as needed Return for any worsening symptoms Prescriptions: New ondansetron 4 mg tablet,disintegrating 4 mg PO Q6H PRN (Reason: nausea and vomiting) Qty: 15 0RF No Action naproxen [Naprosyn] 500 mg tablet 500 mg PO BID Qty: 14 0RF pantoprazole [Protonix] 40 mg tablet,delayed release (DR/EC) 40 mg PO DAILY Qty: 20 0RF ketoconazole 2 % shampoo 1 appl topical 3XW PRN (Reason: seborrhea) Qty: 120 0RF multivitamin Tablet 1 tab PO DAILY 90 Days Qty: 90 3RF norelgestromin-ethin.estradiol [Xulane] 150-35 mcg/24 hr patch weekly transdermal sumatriptan succinate 50 mg tablet See Rx Instructions PO .COMPLEX Qty: 10 2RF Rx Instructions: take 1 tab at onset of headache; if no relief may repeat 1 tab after at least 2 hrs; max = 4 tabs/24 hr PO Referrals: Kiran Ayoub MD [Primary Care Provider] - 1 week Interventions: ED Discharge Assessment Last Done: 05/05/24 17:58 Discharge Date/Time: 05/05/24 17:59 Print Language: [place]
[2024-05-05 13:33] LABS: MANUAL DIFF FLAG NO
[2024-05-05 13:34] LABS: Basophils Percent Auto 0.1 % (0-2); Eosinophils Percent Auto 0.4 % (0-4); Hematocrit 33.8 % (37.0-47.0); Hemoglobin 11.4 g/dl (12.0-16.0); Imm Gran Abs Auto 0.01 X10*3/uL (0.00-0.03); Imm Gran Pct Auto 0.1 % (0.0-0.4); Lymphocytes Absolute Auto 0.6 X10*3/uL (1.2-4.9); Lymphocytes Percent Auto 7.5 % (20-40); Mean Corpuscular HGB Conc 33.7 g/dl (31.0-35.0); Mean Platelet Volume 9.1 fL (9.4-12.3); Monocytes Absolute Auto 0.5 X10*3/uL (0.1-1.2); Monocytes Percent Auto 6.6 % (2-11); Neutrophils Absolute Auto 6.6 x10*3/uL (2.0-8.3); Neutrophils Percent Auto 85.3 % (45-73); Platelet Count 301 X10*3/uL (160-400); Red Blood Count 3.93 X10*6/uL (4.20-5.50); Red Cell Distribution Width 13.9 % (11.0-16.0); White Blood Count 7.8 X10*3/uL (4.8-10.8)
--- NOTE | 2024-05-05 13:38 | PC.NURSE ---
Patient states yesterday began with weakness, chills and body aches which started yesterday. Began vomiting at 4pm yesterday. Abdomen soft, with positive bowel sounds. c/o epigastric pain. No significant tenderness noted.
[2024-05-05 13:50] LABS: Alanine Aminotransferase 13 U/L (0-31); Albumin Level 4.7 g/dL (3.5-5.0); Alkaline Phosphatase 63 U/L (39-117); Anion Gap 13 (12-20); Aspartate Amino Transferase 22 U/L (5-31); Bilirubin Total 1.3 mg/dL (0.0-1.0); Blood Urea Nitrogen 24 mg/dL (9-16); Carbon Dioxide 22 mmol/L (22-29); Chloride 106 mmol/L (96-108); Creatinine Clr Calc Pharmacy 90.7; Estimated Glomerular Filt Rate > 60; Glucose Random 112 mg/dL (60-115); Lipase 21 U/L (8-78); Potassium 3.4 mmol/L (3.3-5.1); Sodium 138 mmol/L (135-145)
[2024-05-05 14:00] VITALS: BP 102/55; PULSE 103; RESP 16; O2SAT 100
[2024-05-05 14:12] LABS: Influenza A PCR NEGATIVE (Negative); Influenza B PCR NEGATIVE (Negative); Resp Syncy Virus RNA Qual PCR NEGATIVE (Negative); SARS COV2 PCR INHOUSE NEGATIVE (Negative)
[2024-05-05] MEDS: Ondansetron ODT 4 MG TAB.RAPDIS TRANSLINGU (14:29)
[2024-05-05] MEDS: 0.9 % Sodium Chloride 1,000 ML 999 ML IV ×2 (14:29→16:12)
[2024-05-05] MEDS: Famotidine/PF 20 MG/2 ML VIAL IVPUSH (14:30)
[2024-05-05] MEDS: ondansetron HCL 4 MG/2 ML VIAL IVPUSH (14:30)
[2024-05-05] MEDS: Acetaminophen 325 MG TABLET 975 MG PO (16:12)
[2024-05-05 17:01] LABS: Appearance Urine Clear; Color Urine Yellow; Glucose Urine UA Negative (Negative); Leukocyte Esterase Urine Negative (Negative); Nitrite Urine Negative (Negative); Specific Gravity - Urine 1.015 (1.005-1.025); Urine Blood Negative (Negative); Urine Ketones Trace mg/dL (Negative); Urine Protein Negative (Neg-Trace)
[2024-05-05 17:02] LABS: UPreg QC Valid YES; Urine Pregnancy NEGATIVE (NEGATIVE)
[2024-05-05 17:20] VITALS: BP 98/59; PULSE 98; RESP 20; TEMP 36.7; O2SAT 100
[2024-05-05 17:38] VITALS: BP 104/60; PULSE 97; RESP 16; TEMP 36.7; O2SAT 100
[2024-05-05 17:58] VITALS: BP 104/60; PULSE 97; RESP 16; TEMP 36.7; O2SAT 100
== END 2024-05-05 17:59 | disposition home or self-care (01) ==
PROVIDERS: Nurse Practitioner Family; Emergency Provider Internal Medicine; PCP Internal Medicine
DX: K52.9 Noninfective gastroenteritis and colitis, unspecified (principal); R10.10 Upper abdominal pain, unspecified; Z03.818 Encounter for observation for suspected exposure to other biological agents ruled out
CPT/HCPCS: 0241U; 80053; 81003; 81025; 83690; 85025; 96361; 96374; 96375; 99284; 99285; J2405

== ENCOUNTER 2024-12-18 13:05 | Outpatient (AMB) | payer OTHER, SELFPAY ==
--- NOTE | 2024-12-18 13:35 | MHC.PC.OV ---
Vital Signs 12/18/24 13:37 Height 5 ft 4 in Weight 104 lb BMI 17.8 BP 130/60 Blood Pressure Location Rt brachial Position Sitting Pulse 89 Pulse Source Pulse Oximeter Temp 97.1 F Temp Source Temporal Artery Scan Pulse Oximetry (%) 94 Oxygen Delivery Method Room Air Intake Visit Reasons: Tiredness Intake Note: Patient complains of Trredness. 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 Junior Account Manager: Not Required per policy Accompanied by: Self / Same As Patient Allergies No Known Allergies Allergy (Verified 12/18/24 13:36) Medication List - Last Reconciled 12/18/24 by Natalie Catalan MD ketoconazole 2% 1 appl topical 3XW PRN multivitamin 1 tab PO DAILY 90 days sumatriptan succinate take 1 tab at onset of headache; if no relief may repeat 1 tab after at least 2 hrs; max = 4 tabs/24 hr PO Tobacco use date assessed: 12/18/24 Dental Screening Dental Screen Date: 12/18/24 Did you have a dental visit in the last 12 months?: Yes Did you have a dental problem in the last 6 months where you did not have access to dental care?: No Was dental information given to patient?: Patient has dentist HPI HPI Comments History of Present Illness Details The patient is a 29-year-old female with PMH of Migraine, low BMI, gastritis, constipation presenting with chronic, severe fatigue and recent onset of irregular menstruation. She reports feeling so sleepy she wants to sleep during the day. Since November, the patient has been experiencing menstrual bleeding twice a month, every two weeks. Specifically, in November, she bled from the to the and again from the to the . This menstrual pattern is a recent change and did not begin after childbirth. The patient has a baseline history of anemia, which is believed to be contributing to her fatigue. She has a 2-year-old son, born via a delivery that included an epidural, and she did not breastfeed. She also reports back pain, which she attributes to the cold and her prior epidural. Her diet typically consists of two meals a day, as she notes a poor appetite. She does not work out, citing her fatigue as the reason. A long time ago, she was prescribed cyproheptadine by a different provider, which helped increase her appetite. She requested STD screening which has been ordered. [facility] Medical History Migraine Underweight Surgical History History of elective breast augmentation Family History Father No problems noted. Mother No problems noted. Maternal Grandmother Diabetes Paternal Grandmother Diabetes Maternal Uncle Cancer Social History Housing: Apartment Alcohol intake: never Patient Tobacco Use Status: Never used Tobacco e-Cigarette/Vaping Use: Never Used Second Hand Smoke Exposure: No service: No Current occupational status: employed Current occupation: paraprofessional Cognitive needs: No Hearing needs: No Vision needs: Yes Questionnaire PHQ-9 Over the last 2 weeks, how often have you been bothered by any of the following problems? 1. Little interest or pleasure in doing things: several days 2. Feeling down, depressed, or hopeless: not at all 3. Trouble falling or staying asleep, or sleeping too much: nearly every day 4. Feeling tired or having little energy: nearly every day 5. Poor appetite or overeating: nearly every day 6. Feeling bad about yourself - or that you are a failure or have let yourself or your family down: not at all 7. Trouble concentrating on things, such as reading the newspaper or watching television: not at all 8. Moving or speaking so slowly that other people could have noticed. Or the opposite - being so fidgety or restless that you have been moving around a lot more than usual: not at all 9. Thoughts that you would be better off or of hurting yourself in some way: not at all Total score: 10 Depression Screening Interpretation: Positive Depression Screening Done: Yes Source: Developed by Drs. Tejinder Ba, Keely Ordonez, Javier Aguirre and colleagues, with an educational hansel from [employer] Thrive Questionnaire Date Thrive assessed: 08/30/24 I am a: Patient What is your living situation today?: I have a steady place to live Within the past 12 months, did the food you bought not last and you didn't have the money to get more?: Never true Within the past 12 months, did you worry whether your food would run out before you got money to buy more?: Never true Do you have trouble paying for medicines?: No Do you have trouble getting transportation to medical appointments?: No Do you have trouble paying your heating and electricity bill?: No Do you have trouble taking care of your child, family member or friend?: No Do you have trouble with day-to-day activities such as bathing, preparing meals, shopping, managing finances, etc.?: No Are you currently unemployed and looking for a job?: No Are you interested in more education?: No Please select the resources that you would like help with: None Currently or been in a relationship where the following occur: I choose not to answer THRIVE Score: 0 AUDIT C Alcohol Use Questionnaire (AUDIT-C) 1. How often do you have a drink containing alcohol?: Never Total Score: 0 NURYS-7 AMB Questionnaire NURYS-7 Date NURYS - 7 assessed: 12/18/24 Feeling nervous, anxious, or on edge: 0 = Not at all Not being able to stop or control worryin = Not at all Worrying too much about different things: 0 = Not at all Trouble relaxin = Not at all Being so restless that it is hard to sit still: 0 = Not at all Becoming easily annoyed or irritable: 0 = Not at all Feeling afraid as if something awful might happen: 0 = Not at all Total NURYS-7 score (0-4 normal; 5-9 mild; 10-14 moderate; 15-21 severe): 0 Source: Developed by Drs. Tejinder Ba, Keely Ordonez, Javier Aguirre and colleagues, with an educational hansel from [employer] Review of Systems Const Details: As per HPI. Physical exam (Primary Care) Vital Signs: Last Vital Signs Temp 97.1 F 12/18/24 13:37 Pulse 89 12/18/24 13:37 BP 130/60 12/18/24 13:37 Pulse Ox 94 12/18/24 13:37 Oxygen Delivery Method Room Air 12/18/24 13:37 BMI result Body Mass Index 17.8 Tobacco/Smoking Status: Tobacco use Status Tobacco use date assessed 12/18/24 12/18/24 13:43 Patient Tobacco Use Status Never used Tobacco 12/18/24 13:43 e-Cigarette/Vaping Use Never Used 12/18/24 13:43 PHQ-9: PHQ-9 Score PHQ-9: Total score 10 12/18/24 13:43 Depression Screening Interpretation: Positive Thrive Assessment: Date of Thrive Assessment Date Thrive assessed 08/30/24 12/18/24 13:43 Currently or been in a relationship where the following occur: I choose not to answer Const Other: Pertinent findings are in BOLD GENERAL APPEARANCE NAD, activity normal for age, well developed/ well nourished, no cyanosis, pallor, or diaphoresis. EYES lids/conjunctiva normal. EARS/NOSE/THROAT Mucous membranes moist, nares normal, lips/teeth normal uvula midline without oral pharyngeal erythema, exudate or swelling TMs normal bilaterally. No lymphangitis/lymphedema. HEAD/NECK normocephalic atraumatic, no facial trauma, neck is supple. RESPIRATORY respiratory effort normal, speaks in full sentences, no tripod position, no accessory muscle use. Lungs clear to auscultation without rhonchi, wheezes, rales CARDIAC Regular rate and rhythm, no edema. ABDOMINAL Soft, ND/NT. No evidence of fluid wave. No pulsatile masses on exam, rebound tenderness, Mcghee sign or pain over Mcburney's point. MUSCLES/EXTREMITIES No abnormal range of motion, no swelling. SKIN Warm, pink and dry. No rashes, dermatoses, petechiae or lesions. NEUROLOGICAL Speech is clear and appropriate. Normal level of consciousness. Gait and coordination are normal. 5/5 strength in all extremities. PSYCH Normal mood and affect. Judgement/competence is appropriate Coding Level of Care Code New Pt Level 4 (48481) New Pt Prev Care 18-39yr(84980 Diagnoses Irregular menses N92.6 Screening for STD (sexually transmitted disease) Z11.3 Decreased appetite R63.0 Fatigue, unspecified type R53.83 Fatigue type: unspecified Anemia, unspecified type D64.9 Anemia type: unspecified type Assessment & Plan Assessment & Plan (1) Irregular menses: Code(s): N92.6 - Irregular menstruation, unspecified Category: Medical Plan: - The patient reports new onset of menstrual cycles occurring every two weeks since November. - Hormonal labs, including LH, FSH, Prolactine, TSH, estrogen, testosterone, and cortisol, have been ordered to evaluate for endocrine abnormalities. - A transvaginal ultrasound has been ordered to assess for structural uterine pathology. - The patient has an upcoming appointment with an TELEGRAPHIC TYPEWRITER MECHANIC, and she has been advised to take the lab results to this visit. (2) Screening for STD (sexually transmitted disease): Code(s): Z11.3 - Encounter for screening for infections with a predominantly sexual mode of transmission Category: Medical Plan: - At the patient's request, screening for sexually transmitted infections has been ordered. - The panel includes tests for HIV, hepatitis B, hepatitis C, HSV, Chlamydia, and syphilis. (3) Decreased appetite: Code(s): R63.0 - Anorexia Category: Medical Plan: Reviewed the patient's diet plan and she eats two meals per day. She usually eats a sandwich in the morning and a small meal at night. Patient reported she was taking cyproheptadine vs Megace. We will consider apetite stimulant in the future including Cyproheptadine and (4) Fatigue: Code(s): R53.83 - Other fatigue Category: Medical Qualifiers: Fatigue type: unspecified Qualified Code(s): R53.83 - Other fatigue Plan: - Her fatigue can be related to anemia vs irregular menses vs other causes. W-U: CBC, iron panel, ferritin, B12, folate, TSH, celiac panel. (5) Anemia: Code(s): D64.9 - Anemia, unspecified Category: Medical Qualifiers: Anemia type: unspecified type Qualified Code(s): D64.9 - Anemia, unspecified Plan: - The patient has a baseline history of anemia, and there is concern it has worsened due to increased menstrual blood loss. - Labs including a CBC, Homocysteine, MMA, iron profile with ferritin, and B12 have been ordered to reassess her anemia. Plan I explained to the patient that her significant fatigue is likely multifactorial, with her baseline anemia probably being worsened by the recent onset of frequent menstrual bleeding. I described this as a potential vicious cycle where poor nutritional intake may affect her menstrual cycle, leading to more blood loss, which in turn worsens her anemia and fatigue. I ordered a comprehensive set of labs to evaluate her anemia, thyroid function, vitamin levels, and hormones, and also ordered a transvaginal ultrasound to investigate the irregular menses. The patient also requested and consented to a full STD panel. I advised her to verify insurance coverage for the extensive lab work to avoid high [id number] costs. I encouraged her to proceed with her scheduled TELEGRAPHIC TYPEWRITER MECHANIC appointment and to bring these lab results with her. We will follow up in one month to review all results and assess her condition, but I will contact her sooner if any critical lab values arise. Orders: Orders Complete Blood Count no Diff Today N92.6 - Irregular menstruation, unspecified Comprehensive Met. Panel Today N92.6 - Irregular menstruation, unspecified Ferritin Today N92.6 - Irregular menstruation, unspecified Lipid Panel Today N92.6 - Irregular menstruation, unspecified TSH reflex Free T4 Today N92.6 - Irregular menstruation, unspecified Vitamin B12 and Folate Today D64.9 - Anemia, unspecified, N92.6 - Irregular menstruation, unspecified Homocysteine Today D64.9 - Anemia, unspecified, N92.6 - Irregular menstruation, unspecified IRON PROFILE Today N92.6 - Irregular menstruation, unspecified Hemoglobin A1c Today N92.6 - Irregular menstruation, unspecified Hepatitis B Surface Antigen Today N92.6 - Irregular menstruation, unspecified Chlamydia Species Ab Panel Today N92.6 - Irregular menstruation, unspecified Syphilis Screen Today N92.6 - Irregular menstruation, unspecified CRP High Sensitivity Today N92.6 - Irregular menstruation, unspecified Lutenizing Hormone Today N92.6 - Irregular menstruation, unspecified Prolactin Today N92.6 - Irregular menstruation, unspecified HIV Ab/Ag Today N92.6 - Irregular menstruation, unspecified Hepatitis C Antibody Reflex Today N92.6 - Irregular menstruation, unspecified Vitamin D 25-OH Total Today N92.6 - Irregular menstruation, unspecified Reticulocyte Count Today D64.9 - Anemia, unspecified, N92.6 - Irregular menstruation, unspecified Methylmalonic Acid Today D64.9 - Anemia, unspecified, N92.6 - Irregular menstruation, unspecified Direct Catracho (CHRIS) Today D69.6 - Thrombocytopenia, unspecified, N92.6 - Irregular menstruation, unspecified Hepatitis B Surface Antibody Today N92.6 - Irregular menstruation, unspecified Hepatitis B Core Antibody Today N92.6 - Irregular menstruation, unspecified Cortisol Random Today N92.6 - Irregular menstruation, unspecified Cortisol, Free Today N92.6 - Irregular menstruation, unspecified Estrogen Today N92.6 - Irregular menstruation, unspecified Testosterone, Free/Total Today N92.6 - Irregular menstruation, unspecified Erythrocyte Sedimentation Rate Today N92.6 - Irregular menstruation, unspecified Follicle Stimulating Hormone Today N92.6 - Irregular menstruation, unspecified Celiac Disease Panel Today N92.6 - Irregular menstruation, unspecified Estradiol Ultra Sensitive Today N92.6 - Irregular menstruation, unspecified US transvaginal Today N92.6 - Irregular menstruation, unspecified HSV I and II,IHC Today Z11.3 - Encounter for screening for infections with a predominantly sexual mode of transmission
[2024-12-18 13:37] VITALS: BP 130/60; PULSE 89; TEMP 36.2; O2SAT 94; BMI 17.8
--- OUTSIDE RECORDS SUMMARY | 2024-12-18 15:52 | XMS_ITS | Clinical Summary ---
Author Organization [facility] Address [address] [place] [address] Phone Care Team Providers Care Environmental Health And Safety Manager Name Role Phone Radha Boothe MD Primary Care Provider [phone] Allergies No known active allergies Medications cyproheptadine (PERIACTIN) 4 mg tablet Take 4 mg by mouth. 9 Active ketoconazole (NIZORAL) 2 % shampoo APPLY TO SCALP AND RINSE 2 TIMES A WEEK. 9 Active etonogestreL (NEXPLANON) 68 mg Impl Inject 68 mg into the skin Once every 3 years. Active HYDROcodone-roger taminophen (NORCO) 5-325 mg per tablet Take 1 tablet by mouth every 6 (six) hours as needed. Patient may request a partial fill. 10 tablet 0 Active Additional Information Patient not taking.Reported on 10/19/2022 moxifloxacin (VIGAMOX) 0.5 % ophthalmic solution Place 1 drop into the left eye 4 (four) times a day. Start eye drop on January 01, three days before crosslinking procedure. 3 mL 1 3 Active prednisoLONE acetate (PRED FORTE) 1 % ophthalmic suspension Place 1 drop into the left eye 4 (four) times a day. To be used after crosslinking. 5 mL 3 3 Active LORazepam (ATIVAN) 1 MG tablet Take 1 tablet (1 mg total) by mouth daily. Take 1 tablet by mouth 20 minutes before crosslinking procedure. 2 tablet 3 Active ketorolac (TORADOL) 10 mg tablet Take 1 tablet (10 mg total) by mouth every 6 (six) hours as needed. 10 tablet 2 3 Active Family History Medical History Relation Comments Cataracts Maternal Grandfather Relation Status Comments Maternal Grandfather Social History Tobacco Use Types Packs/Day Years Used Date Smoking Tobacco: Never Smokeless Tobacco: Never Alcohol Use Standard Drinks/Week Comments Not Currently 0 (1 standard drink = 0.6 oz pur e alcohol) Education Answer Date Recorded Are you interested in more education? Not on rosy e 06/03/2022 Are you concerned about learning? Not on file 06/03/2022 No 06/03/2022 No 06/03/2022 Digital Access Answer Date Recorded No 07/04/2022 No 07/04/2022 Reliable internet access at home? Not on file 07/04/2022 Device with a working camera? Not on file Comments No Sex and Gender Information Value Date Recorded Sex Assigned at Not on file Legal Sex Female 4:47 PM EDT Gender Identity Not on file Sexual Orientation Not on file Last Filed Vital Signs Vital Sign Reading Time Taken Comments Blood Pressure 126/83 04/07/2019 10:40 AM EST Pulse 98 04/07/2019 10:40 AM EST Temperature 36.4 C (97.5 F) 04/07/2019 10:40 AM EST Respiratory Rate 16 04/07/2019 10:40 AM EST Oxygen Saturation 98% 04/07/2019 10:40 AM EST Inhaled Oxygen Concentration - - Weight 43.5 kg (96 lb) 04/07/2019 10:40 AM EST Height 162.6 cm (5' 4 ) 04/07/2019 10:40 AM EST Body Mass Index 16.48 04/07/2019 10:40 AM EST Plan of Treatment Health Maintenance Due Date Last Done Comments DEPRESSION SCREENING 2009 HEPATITIS C SCREENING 10/29/2015 HIV ONE-TIME SCREENING (18-65 YEARS) 10/29/2015 PAP SMEAR 2018 Adult Td,Tdap Booster 10/07/2019 10/06/2009 INFLUENZA VACCINE (#1) 2024 9, 01/10/2018, 01/26/2017, Additional history exists COVID-19 VACCINE ( season) 2024 07/16/2020, 06/18/2020 HIB VACCINES Completed 02/11/1999, 05/08, 06/04/1998, Additional history exists IPV VACCINES Completed 05/21/2002, 07/1999, 06/04/1998, Additional history exists HEPATITIS A VACCINES Completed 07/19/2010, 12/09/19 10 MENINGOCOCCAL VACCINES (ACWY) Completed 08/11/2014, 10/06/2009 SMOKING STATUS SCREENING (Once After 26 Yrs) Completed 01/12/2023 MENINGOCOCCAL VACCINES (B) Aged Out N o longer eligible based on patient's age to complete this topic PNEUMOCOCCAL VACCINES (0-49 years) Aged Out No longer eligible based on patient's age to complete this topic Medical Devices Not on file Insurance [place] [address] [place] [address] [place] [address] [place] [address] [place] [address] [place] [address] [place] [address] [place] [address] [employer] [address] [place] [address] [place] [address] [place] [address] [place] [address] [place] [address] ACO Care Teams Environmental Health And Safety Manager Relationship Specialty Start Date End Date Radha Boothe MD [address] [place] [address] PCP - General Internal Medicine 03/15/19 Additional Source Comments The information contained in this document represents components of the legal health record. It is not the complete legal health record.[facility]
--- OUTSIDE RECORDS SUMMARY | 2024-12-18 15:52 | XMS_ITS | Encounter Summary ---
Author Organization [facility] Address [address] [place] [address] [place] [id number] Phone Care Team Providers Care Strip Cutter Name Role Phone Radha Boothe MD Primary Care Provider [phone] Encounter Details Date Type Department Care Team (Late st Contact Info) Description 04/07/2019 Ophth Exam [facility] [address] [place] [address] Miguel Romano MD [address] [place] [address] [email or web address] Social History Tobacco Use Types Packs/Day Years Used Date Smoking Tobacco: Never Smokeless Tobacco: Never Alcohol Use Standard Drinks/Week Comments Not Currently 0 (1 standard drink = 0.6 oz pur e alcohol) Comments No Sex and Gender Information Value Date Recorded Sex Assigned at Not on file Legal Sex Female 4:47 PM EDT Gender Identity Not on file Sexual Orientation Not on file documented as of this encounter Plan of Treatment Not on file documented as of this encounter Visit Diagnoses Not on filedocumented in this encounter Care Teams Strip Cutter Relationship Specialty Start Date End Date Radha Boothe MD [address] [place] [address] PCP - General Internal Medicine 03/15/19 documented as of this encounter Additional Source Comments The information contained in this document represents components of the legal health record. It is not the complete legal health record.[facility]
== END 2024-12-18 14:09 | disposition home or self-care (01) ==
LOC: HO.HMCH 13:06
PROVIDERS: PCP Internal Medicine; Visit Provider Internal Medicine
DX: N92.6 Irregular menstruation, unspecified (principal); Z11.3 Encounter for screening for infections with a predominantly sexual mode of transmission; R63.0 Anorexia; R53.83 Other fatigue; D64.9 Anemia, unspecified

== ENCOUNTER 2024-12-18 13:05 | Outpatient (REF) | payer OTHER, SELFPAY ==
[2024-12-18 14:38] LABS: Hematocrit 32.8 % (37.0-47.0); Hemoglobin 10.5 g/dl (12.0-16.0); Mean Corpuscular HGB Conc 32.0 g/dl (31.0-35.0); Mean Corpuscular Hemoglobin 28.1 pg (27.0-33.0); Mean Corpuscular Volume 87.7 fL (80.0-98.0); NRBC Abs Auto 0.000 X10*3/uL (0.0-0.012); NRBC Pct Auto 0.0 /100WBC (0.0-0.2); Platelet Count 355 X10*3/uL (160-400); Red Blood Count 3.74 X10*6/uL (4.20-5.50); Reticulocytes Absolute 0.057 X10*6/uL (0.026-0.095); White Blood Count 7.2 X10*3/uL (4.8-10.8)
[2024-12-18 15:03] LABS: Alanine Aminotransferase 26 U/L (0-31); Albumin Level 4.9 g/dL (3.5-5.0); Alkaline Phosphatase 41 U/L (39-117); Anion Gap 10 (12-20); Aspartate Amino Transferase 20 U/L (5-31); Blood Urea Nitrogen 23 mg/dL (9-16); Calcium 9.3 mg/dL (8.4-10.2); Carbon Dioxide 25 mmol/L (22-29); Chloride 107 mmol/L (96-108); Cholesterol 240 mg/dL (<200); Estimated Glomerular Filt Rate > 60; HDL Cholesterol 43 mg/dL (>40); Iron 32 mcg/dL (30-160); Percent Iron Saturation 10 % (15-50); Potassium 3.6 mmol/L (3.3-5.1); Sodium 138 mmol/L (135-145); Total Iron Binding Capacity 326 mcg/dL (228-428); Total Protein 8.0 g/dL (6.5-8.0); Triglycerides 193 mg/dL (<150); Unsaturated Iron Binding 294 ug/dL
[2024-12-18 15:15] LABS: Erythrocyte Sedimentation Rate 28 MM/HR (0-20)
[2024-12-18 15:19] LABS: Ferritin 7 ng/mL (10-122)
[2024-12-18 15:31] LABS: Folate 10.7 ng/mL (> or = 4.0); Vitamin B12 430 pg/mL (200-900)
[2024-12-19 03:35] LABS: Syphilis Screen Nonreactive (Nonreactive)
[2024-12-19 04:03] LABS: HBS Num1 181.77 mIU/mL (0-7.99); HBc Num1 0.05 S/CO (0.00-0.79); HBsAGNum1 0.48 S/CO (0.00-0.99); HIV Num 1 0.06 S/CO (0.00-0.99); Hepatitis B Surface Antigen Negative (Negative); ~HepC Num1 2.85 S/CO (0.00-0.79); ~Hepatitis B Surface Antibody REACTIVE (Nonreactive); ~Hepatitis C Antibody Reactive (Nonreactive)
[2024-12-19 07:13] LABS: Follicle Stimulating Hormone 4.9 mIU/mL
[2024-12-20 04:09] LABS: Immunoglobulin A 156 mg/dL (47-310)
[2024-12-21 13:18] LABS: HCV Log PCR <1.18 NOT DETECTED Log IU/mL (NOT DETECTED); HepC Viral Load <15 NOT DETECTED IU/mL (NOT DETECTED)
[2024-12-22 09:42] LABS: Estradiol Ultra Sensitive 64 pg/mL
[2024-12-22 17:43] LABS: Chlamydia Trachomatis IgA <1:16 titer (<1:16)
[2024-12-24 17:09] LABS: Cortisol, Free 0.18 mcg/dL
[2024-12-27 21:03] LABS: Testosterone, Free 1.8 pg/mL (0.1-6.4)
== END 2024-12-18 13:06 | disposition home or self-care (01) ==
LOC: HO.LAB 13:05
PROVIDERS: PCP Internal Medicine; Visit Provider Internal Medicine
DX: Z11.3 Encounter for screening for infections with a predominantly sexual mode of transmission (principal); N92.6 Irregular menstruation, unspecified; D64.9 Anemia, unspecified; D69.6 Thrombocytopenia, unspecified; R63.0 Anorexia; R53.83 Other fatigue; Z79.899 Other long term (current) drug therapy
CPT/HCPCS: 36415; 80053; 80061; 82306; 82530; 82533; 82607; 82670; 82672; 82728; 82746; 82784; 83001; 83002; 83036; 83090; 83540; 83921; 84146; 84402; 84403; 84443; 85027; 85045; 85652; 86141; 86364; 86631; 86632; 86704; 86706; 86780; 86803; 86880; 87340; 87389; 87522

== ENCOUNTER 2025-01-17 15:30 | Outpatient (AMB) | payer OTHER, SELFPAY ==
--- NOTE | 2025-01-17 15:52 | MHC.PC.OV ---
Vital Signs 01/17/25 15:54 Height 5 ft 4 in Weight 106 lb BMI 18.2 BP 130/62 Blood Pressure Location Lt brachial Position Sitting Pulse 66 Pulse Source Pulse Oximeter Temp 97.1 F Temp Source Temporal Artery Scan Pulse Oximetry (%) 100 Oxygen Delivery Method Room Air Intake Visit Reasons: 1month f/u Freight Adjuster Required: No Horse Trainer: Not Required per policy Accompanied by: Self / Same As Patient Allergies No Known Allergies Allergy (Verified 01/17/25 15:53) Medication List - Last Reconciled 01/17/25 by Natalie Catalan MD cholecalciferol (vitamin D3) 250 mcg PO DAILY ferrous sulfate 325 mg PO DAILY ketoconazole 2% 1 appl topical 3XW PRN multivitamin 1 tab PO DAILY 90 days sumatriptan succinate take 1 tab at onset of headache; if no relief may repeat 1 tab after at least 2 hrs; max = 4 tabs/24 hr PO Tobacco use date assessed: 01/17/25 Dental Screening Dental Screen Date: 12/18/24 HPI HPI Comments History of Present Illness Details The patient is a 29 year old female with PMH of irregular menses, Anorexia, vit D deficiency, JAYDA, migraines presenting for a follow-up visit to review lab results and discuss ongoing medical issues. Recent lab results showed low iron, for which she started taking iron pills, and low vitamin D. Her LDL cholesterol was also high, but a decision was made to monitor it for now. The patient reports her migraines are doing well. She has been experiencing irregular periods and has an ultrasound scheduled for the . She reports a skin reaction to her contraceptive patch, which was prescribed by her OBGYN, and is considering switching to pills. The patient reports her appetite is improving. Her weight at home was 103 lbs. She has a history of taking cyproheptadine 4 mg QID in the past, which she felt helped her, and stopped taking it after changing doctors. Lab work revealed positive hepatitis C antibodies, indicating a past resolved infection, but she is not currently infected. Other lab tests, including hormones like estrogen, FSH, LH, and prolactin, were conducted and they were within normal limits. PFSH Medical History Migraine Underweight Surgical History History of elective breast augmentation Family History Father No problems noted. Mother No problems noted. Maternal Grandmother Diabetes Paternal Grandmother Diabetes Maternal Uncle Cancer Social History Housing: Apartment Alcohol intake: never Patient Tobacco Use Status: Never used Tobacco e-Cigarette/Vaping Use: Never Used Second Hand Smoke Exposure: No service: No Current occupational status: employed Current occupation: paraprofessional Cognitive needs: No Hearing needs: No Vision needs: Yes Questionnaire Thrive Questionnaire Date Thrive assessed: 08/30/24 I am a: Patient What is your living situation today?: I have a steady place to live Within the past 12 months, did the food you bought not last and you didn't have the money to get more?: Never true Within the past 12 months, did you worry whether your food would run out before you got money to buy more?: Never true Do you have trouble paying for medicines?: No Do you have trouble getting transportation to medical appointments?: No Do you have trouble paying your heating and electricity bill?: No Do you have trouble taking care of your child, family member or friend?: No Do you have trouble with day-to-day activities such as bathing, preparing meals, shopping, managing finances, etc.?: No Are you currently unemployed and looking for a job?: No Are you interested in more education?: No Please select the resources that you would like help with: None Currently or been in a relationship where the following occur: I choose not to answer THRIVE Score: 0 NURYS-7 AMB Questionnaire NURYS-7 Date NURYS - 7 assessed: 12/18/24 Source: Developed by Drs. Tejinder Ba, Keely Ordonez, Javier Aguirre and colleagues, with an educational hansel from [employer]. Review of Systems Const Details: As per HPI. Physical exam (Primary Care) Vital Signs: Last Vital Signs Temp 97.1 F 01/17/25 15:54 Pulse 66 01/17/25 15:54 BP 130/62 01/17/25 15:54 Pulse Ox 100 01/17/25 15:54 Oxygen Delivery Method Room Air 01/17/25 15:54 BMI result Body Mass Index 18.2 Tobacco/Smoking Status: Tobacco use Status Tobacco use date assessed 01/17/25 01/17/25 15:59 Patient Tobacco Use Status Never used Tobacco 01/17/25 15:59 e-Cigarette/Vaping Use Never Used 01/17/25 15:59 Thrive Assessment: Date of Thrive Assessment Date Thrive assessed 08/30/24 01/17/25 15:59 Currently or been in a relationship where the following occur: I choose not to answer Const Other: Pertinent findings are in BOLD GENERAL APPEARANCE NAD, activity normal for age, well developed/ well nourished, no cyanosis, pallor, or diaphoresis. EYES lids/conjunctiva normal. EARS/NOSE/THROAT Mucous membranes moist, nares normal, lips/teeth normal uvula midline without oral pharyngeal erythema, exudate or swelling TMs normal bilaterally. No lymphangitis/lymphedema. HEAD/NECK normocephalic atraumatic, no facial trauma, neck is supple. RESPIRATORY respiratory effort normal, speaks in full sentences, no tripod position, no accessory muscle use. Lungs clear to auscultation without rhonchi, wheezes, rales CARDIAC Regular rate and rhythm, no edema. ABDOMINAL Soft, ND/NT. No evidence of fluid wave. No pulsatile masses on exam, rebound tenderness, Mcghee sign or pain over Mcburney's point. MUSCLES/EXTREMITIES No abnormal range of motion, no swelling. SKIN Warm, pink and dry. No rashes, dermatoses, petechiae or lesions. NEUROLOGICAL Speech is clear and appropriate. Normal level of consciousness. Gait and coordination are normal. 5/5 strength in all extremities. PSYCH Normal mood and affect. Judgement/competence is appropriate Coding Level of Care Code Est Pt Level 4 (88231) Diagnoses Irregular menses N92.6 Anemia, unspecified type D64.9 Anemia type: unspecified type Fatigue, unspecified type R53.83 Fatigue type: unspecified Hyperlipidemia, unspecified hyperlipidemia type E78.5 Hyperlipidemia type: unspecified Vitamin D deficiency E55.9 Iron deficiency anemia, unspecified iron deficiency anemia type D50.9 Iron deficiency anemia type: unspecified iron deficiency Migraine without status migrainosus, not intractable, unspecified migraine type G43.909 Migraine type: unspecified Status migrainosus presence: without status migrainosus Intractability: not intractable Encounter for contraceptive management, unspecified type Z30.9 Contraceptive encounter type: unspecified Anorexia R63.0 Time Spent (min) 30 Assessment & Plan Assessment & Plan (1) Irregular menses: Code(s): N92.6 - Irregular menstruation, unspecified Category: Medical Plan: - The patient continues to have irregular menses. - She has an upcoming ultrasound on the . - The patient was advised to follow up with her TELEPHONE INSTRUMENT SUPERVISOR, as they are better equipped to manage contraceptive methods, especially with her irregular menses. - The patient will share her recent hormone lab results (estrogen, estradiol, FSH, LH, prolactin) with her TELEPHONE INSTRUMENT SUPERVISOR. (2) Anemia: Code(s): D64.9 - Anemia, unspecified Category: Medical Qualifiers: Anemia type: unspecified type Qualified Code(s): D64.9 - Anemia, unspecified Plan: - The patient's iron level was low on recent labs. - She has started taking iron pills and should continue. (3) Fatigue: Code(s): R53.83 - Other fatigue Category: Medical Qualifiers: Fatigue type: unspecified Qualified Code(s): R53.83 - Other fatigue Plan: From Low BMI, JAYDA, and vit D deficiency. We will start Cyproheptadine to assist with her low BMI. (4) HLD (hyperlipidemia): Code(s): E78.5 - Hyperlipidemia, unspecified Category: Medical Qualifiers: Hyperlipidemia type: unspecified Qualified Code(s): E78.5 - Hyperlipidemia, unspecified Plan: - The patient's LDL cholesterol is high. LDL 159. Cholesterol 240. - No medication will be started at this time due to the patient young age <40 yo. - The plan is to monitor for now as the patient is below 40 yo and LDL is less than 190. (5) Vitamin D deficiency: Code(s): E55.9 - Vitamin D deficiency, unspecified Category: Medical Plan: - The patient's vitamin D is slightly low. - Will continue with the current vitamin D prescription, taken as a supplement. (6) JAYDA (iron deficiency anemia): Code(s): D50.9 - Iron deficiency anemia, unspecified Category: Medical Qualifiers: Iron deficiency anemia type: unspecified iron deficiency Qualified Code(s): D50.9 - Iron deficiency anemia, unspecified Plan: - The patient's iron level was low on recent labs. - She has started taking iron pills and should continue. - Monitor labs yearly. (7) Migraine: Code(s): G43.909 - Migraine, unspecified, not intractable, without status migrainosus Category: Medical Qualifiers: Migraine type: unspecified Status migrainosus presence: without status migrainosus Intractability: not intractable Qualified Code(s): G43.909 - Migraine, unspecified, not intractable, without status migrainosus Plan: Continue Sumatriptan as needed. (8) Contraceptive management: Code(s): Z30.9 - Encounter for contraceptive management, unspecified Category: Medical Qualifiers: Contraceptive encounter type: unspecified Qualified Code(s): Z30.9 - Encounter for contraceptive management, unspecified Plan: - The patient is experiencing a skin reaction to her current contraceptive patch. - She expressed a desire to switch to oral contraceptive pills. - She was advised to discuss changing her contraceptive method with her TELEPHONE INSTRUMENT SUPERVISOR, who prescribed the patch. (9) Anorexia: Code(s): R63.0 - Anorexia Category: Medical Plan: - The patient reports her appetite is improving. - She has previously used cyproheptadine and found it helpful for her appetite. - A new prescription for cyproheptadine 4 mg three times a day will be provided. - The dosage may be adjusted in the future if needed. Plan I reviewed the patient's recent lab results, which showed low iron, high LDL cholesterol, and low vitamin D. We discussed continuing iron and vitamin D supplements. For the high cholesterol, I explained that we would monitor it for now without starting medication, as it may be familial given her low weight. We discussed her irregular menses and skin reaction to her contraceptive patch. I advised her to consult with her TELEPHONE INSTRUMENT SUPERVISOR to manage these issues, as they prescribed the patch and specialize in hormonal contraceptives, particularly in the context of menstrual irregularity. I encouraged her to share the recent hormone lab results with her specialist. Regarding her underweight status, we discussed restarting cyproheptadine to help with her appetite, as she found it effective in the past. I will prescribe 4 mg three times a day to start. I also informed her about the positive hepatitis C antibody result, clarifying that it indicates a past, resolved infection and not an active one. We agreed on a follow-up appointment in two months to check on her progress with the cyproheptadine. No further lab work is necessary at this time. Medications: New cyproheptadine 4 mg PO TID PRN 90 tabs 3RF allergy symptoms
[2025-01-17 15:54] VITALS: BP 130/62; PULSE 66; TEMP 36.2; O2SAT 100; BMI 18.2
--- OUTSIDE RECORDS SUMMARY | 2025-01-17 20:20 | XMS_ITS | Encounter Summary ---
Author Organization [facility] Prior to 12/08/2023 Address [address] [place] [address] Care Team Providers Care Pattern Carrier Name Role Phone Cris Corbett MD Primary Care Provider Un available Trice Alvarez MD Primary Care Provider Unavailabl e Cris Corbett MD Primary Care Provider Un available Radha Boothe MD Primary Care Provider Susana rock Encounter Details Date Type Department Care Team Description 06/01/2017 Supervisor Hot Strip Mill Report Medical Records [address] [place] [address] Ana Dueñas [address] [place] [id number] Social History Tobacco Use Types Packs/Day Years Used Date Smoking Tobacco: Never Alcohol Use Standard Drinks/Week Comments No 0 (1 standard drink = 0.6 oz pur e alcohol) Sex Assigned at Date Recorded Not on file documented as of this encounter Plan of Treatment Not on file documented as of this encounter Visit Diagnoses Not on filedocumented in this encounter Care Teams Pattern Carrier Relationship Specialty Start Date End Date Cris Corbett MD PCP - General Internal Medicine 10/04/16 Trice Alvarez MD PCP - General Internal Medicine 11/06/18 11/20/18 Cris Corbett MD PCP - General Internal Medicine 11/21/1811/22 Radha Boothe MD PCP - General Internal Medicine 11/23/18 documented as of this encounter
--- OUTSIDE RECORDS SUMMARY | 2025-01-17 20:21 | XMS_ITS | Encounter Summary ---
Author Organization [employer] [facility] Prior to 12/08/2023 Address [address] [place] [address] Care Team Providers Care Web Page Designer Name Role Phone Cris Corbett MD Primary Care Provider Un available Trice Alvarez MD Primary Care Provider Unavailabl e Cris Corbett MD Primary Care Provider Un available Radha Boothe MD Primary Care Provider Susana rock Encounter Details Date Type Department Care Team Description 10/24/2016 Release of Information Medical Records [address] [place] [id number] Abstract, Provider Social History Tobacco Use Types Packs/Day Years Used Date Smoking Tobacco: Never Alcohol Use Standard Drinks/Week Comments No 0 (1 standard drink = 0.6 oz pur e alcohol) Sex Assigned at Date Recorded Not on file documented as of this encounter Plan of Treatment Not on file documented as of this encounter Visit Diagnoses Not on filedocumented in this encounter Care Teams Web Page Designer Relationship Specialty Start Date End Date Cris Corbett MD PCP - General Internal Medicine 10/04/16 Trice Alvarez MD PCP - General Internal Medicine 11/06/18 11/20/18 Cris Corbett MD PCP - General Internal Medicine 11/21/1811/22 Radha Boothe MD PCP - General Internal Medicine 11/23/18 documented as of this encounter
--- OUTSIDE RECORDS SUMMARY | 2025-01-17 20:21 | XMS_ITS | Encounter Summary ---
Author Organization [facility] Prior to 12/08/2023 Address [address] [place] [address] Care Team Providers Care Airplane And Engine Inspector Name Role Phone Cris Corbett MD Primary Care Provider Un available Trice Alvarez MD Primary Care Provider Unavailabl e Cris Corbett MD Primary Care Provider Un available Radha Boothe MD Primary Care Provider Susana rock Encounter Details Date Type Department Care Team Description 01/10/2018 Turpentine Farmer Report Medical Records [address] [place] [address] Ana Dueñas [address] [place] [address] Social History Tobacco Use Types Packs/Day Years [...] on filedocumented in this encounter Care Teams Airplane And Engine Inspector Relationship Specialty Start Date End Date Cris Corbett MD PCP - General Internal Medicine 10/04/16 Trice Alvarez MD PCP - General Internal Medicine 11/06/18 11/20/18 Cris Corbett MD PCP - General Internal Medicine 11/21/1811/22 Radha Boothe MD PCP - General Internal Medicine 11/23/18 documented as of this encounter
--- OUTSIDE RECORDS SUMMARY | 2025-01-17 20:21 | XMS_ITS | Clinical Summary ---
Author Organization [facility] Address [address] [place] [address] Phone Care Team Providers Care Water Analyst Name Role Phone Radha Boothe MD Primary Care Provider [phone] Allergies No known active allergies Medications cyproheptadine [...] Completed 02/11/1999, 05/08, 06/04/1998, Additional history exists HEPATITIS A VACCINES [...] Devices Not on file Insurance [employer] [place] [address] [address] [place] [address] [place] [address] [place] [address] [place] [address] [place] [address] [place] [address] [place] [address] [place] [address] [place] [address] [place] [address] [place] [address] ACO Care Teams Water Analyst Relationship Specialty Start Date End Date Radha Boothe MD [address] [place] [address] PCP - General Internal Medicine 03/15/19 Additional Source Comments The information contained in this document represents components of the legal health record. It is not the complete legal health record.[facility]
--- OUTSIDE RECORDS SUMMARY | 2025-01-17 20:21 | XMS_ITS | Encounter Summary ---
Author Organization [facility] Address [address] [place] [address] [place] [address] Phone Care Team Providers Care Line Up Examiner Name Role Phone Radha Boothe MD Primary Care Provider [phone] Encounter Details Date Type Department Care Team (Late st Contact Info) Description 04/07/2019 Ophth Exam [facility] Emergency Department [address] [place] [address] Miguel Romano MD [address] [place] [address] [email or web address] Social History Tobacco Use Types [...] on filedocumented in this encounter Care Teams Line Up Examiner Relationship Specialty Start Date End Date Radha Boothe MD [address] [place] [address] PCP - General Internal Medicine 03/15/19 documented as of this encounter Additional Source Comments The information contained in this document represents components of the legal health record. It is not the complete legal health record.[facility]
--- OUTSIDE RECORDS SUMMARY | 2025-01-17 20:21 | XMS_ITS | Encounter Summary ---
Author Organization [facility] Prior to 12/08/2023 Address [address] [place] [address] Care Team Providers Care Apparatus Engineering Technologist Name Role Phone Cris Corbett MD Primary Care Provider Un available Trice Alvarez MD Primary Care Provider Unavailabl e Cris Corbett MD Primary Care Provider Un available Radha Boothe MD Primary Care Provider Susana rock Encounter Details Date Type Department Care Team Description 01/25/2017 Nursery Teacher Report Medical Records [address] [place] [address] Ana Dueñas [address] [place] [address] Social History Tobacco Use Types Packs/Day Years Used Date Smoking Tobacco: Never Alcohol Use Standard Drinks/Week Comments No 0 (1 standard drink = 0.6 oz pur e alcohol) Sex Assigned at Date Recorded Not on file documented as of this encounter Plan of Treatment Not on file documented as of this encounter Visit Diagnoses Not on filedocumented in this encounter Care Teams Apparatus Engineering Technologist Relationship Specialty Start Date End Date Cris Corbett MD PCP - General Internal Medicine 10/04/16 Trice Alvarez MD PCP - General Internal Medicine 11/06/18 11/20/18 Cris Corbett MD PCP - General Internal Medicine 11/21/1811/22 Radha Boothe MD PCP - General Internal Medicine 11/23/18 documented as of this encounter
--- OUTSIDE RECORDS SUMMARY | 2025-01-17 20:21 | XMS_ITS | Encounter Summary ---
Author Organization [facility] Prior to 12/08/2023 Address [address] [place] [address] Care Team Providers Care Private Pilot Name Role Phone Cris Corbett MD Primary Care Provider Un available Trice Alvarez MD Primary Care Provider Unavailabl e Cris Corbett MD Primary Care Provider Un available Radha Boothe MD Primary Care Provider Susana labbc Reason for Visit * Reason Onset Date Comments REFERRAL 10/19/2016 obgyn Encounter Details Date Type Department Care Team Description 10/19/2016 Telephone OBGYN - [place] [address] [place], [place] [phone] Cyndi Mccormick PA-C [address] [place], [place] [phone] REFERRAL (obgyn) Social History Tobacco Use Types Packs/Day Years Used Date Smoking Tobacco: Never Alcohol Use Standard Drinks/Week Comments No 0 (1 standard drink = 0.6 oz pur e alcohol) Sex Assigned at Date Recorded Not on file documented as of this encounter Miscellaneous Notes * Telephone Encounter - Marissa Cheek - 10/19/2016 3:07 PM EDT I spoke with pt to schedule her annual exam per referral she states she doesn't want to schedule appointment. documented in this encounter Plan of Treatment Not on file documented as of this encounter Visit Diagnoses Not on filedocumented in this encounter Care Teams Private Pilot Relationship Specialty Start Date End Date Cris Corbett MD PCP - General Internal Medicine 10/04/16 Trice Alvarez MD PCP - General Internal Medicine 11/06/18 11/20/18 Cris Corbett MD PCP - General Internal Medicine 11/21/1811/22 Radha Boothe MD PCP - General Internal Medicine 11/23/18 documented as of this encounter
--- OUTSIDE RECORDS SUMMARY | 2025-01-17 20:21 | XMS_ITS | Encounter Summary ---
Author Organization [facility] Prior to 12/08/2023 Address [address] [place] [address] Care Team Providers Care Buffer Nickel Name Role Phone Cris Corbett MD Primary Care Provider Un available Trice Alvarez MD Primary Care Provider Unavailabl e Cris Corbett MD Primary Care Provider Un available Radha Boothe MD Primary Care Provider Susana rock Encounter Details Date Type Department Care Team Description 07/12/2017 Store Operations Manager Report Medical Records [address] [place] [address] Ana Dueñas [address] [place] [address] Social History Tobacco Use Types Packs/Day Years Used Date Smoking Tobacco: Never Alcohol Use Standard Drinks/Week Comments No 0 (1 standard drink = 0.6 oz pur e alcohol) Sex Assigned at Date Recorded Not on file documented as of this encounter Plan of Treatment Not on file documented as of this encounter Visit Diagnoses Not on filedocumented in this encounter Care Teams Buffer Nickel Relationship Specialty Start Date End Date Cris Corbett MD PCP - General Internal Medicine 10/04/16 Trice Alvarez MD PCP - General Internal Medicine 11/06/18 11/20/18 Cris Corbett MD PCP - General Internal Medicine 11/21/1811/22 Radha Boothe MD PCP - General Internal Medicine 11/23/18 documented as of this encounter
--- OUTSIDE RECORDS SUMMARY | 2025-01-17 20:21 | XMS_ITS | Encounter Summary ---
Author Organization [facility] Prior to 12/08/2023 Address [address] [place] [address] Care Team Providers Care Size Cutter Name Role Phone Cris Corbett MD Primary Care Provider Un available Trice Alvarez MD Primary Care Provider Unavailabl e Cris Corbett MD Primary Care Provider Un available Radha Boothe MD Primary Care Provider Susana rock Encounter Details Date Type Department Care Team Description 10/31/2017 Picker And Sorter Load And Unload Report Medical Records [address] [place] [address] Ana Dueñas [address] [place] [address] Social History Tobacco Use Types Packs/Day Years [...] on filedocumented in this encounter Care Teams Size Cutter Relationship Specialty Start Date End Date Cris Corbett MD PCP - General Internal Medicine 10/04/16 Trice Alvarez MD PCP - General Internal Medicine 11/06/18 11/20/18 Cris Corbett MD PCP - General Internal Medicine 11/21/1811/22 Radha Boothe MD PCP - General Internal Medicine 11/23/18 documented as of this encounter
== END 2025-01-17 16:36 | disposition home or self-care (01) ==
LOC: HO.HMCH 15:31
PROVIDERS: PCP Internal Medicine; Visit Provider Internal Medicine
DX: N92.6 Irregular menstruation, unspecified (principal); D64.9 Anemia, unspecified; R53.83 Other fatigue; E78.5 Hyperlipidemia, unspecified; E55.9 Vitamin D deficiency, unspecified; D50.9 Iron deficiency anemia, unspecified; G43.909 Migraine, unspecified, not intractable, without status migrainosus; Z30.9 Encounter for contraceptive management, unspecified; R63.0 Anorexia

== ENCOUNTER → 2025-01-17 15:30 | Outpatient (BNVA) | payer OTHER, SELFPAY | PROVIDERS: PCP Internal Medicine; Visit Provider Internal Medicine | DX: Z30.9 Encounter for contraceptive management, unspecified (principal); N92.6 Irregular menstruation, unspecified; D64.9 Anemia, unspecified; R53.83 Other fatigue; E78.5 Hyperlipidemia, unspecified; E55.9 Vitamin D deficiency, unspecified; D50.9 Iron deficiency anemia, unspecified; G43.909 Migraine, unspecified, not intractable, without status migrainosus; R63.0 Anorexia | CPT/HCPCS: 99212 ==

== ENCOUNTER 2025-01-21 14:43 | Outpatient (REF) | payer OTHER, SELFPAY ==
--- NOTE | ~2025-01-21 | US_ITS ---
EXAMINATION: US PELVIS TRANSABDOMINAL AND TRANSVAGINAL HISTORY: N92.6 - Irregular menstruation, unspecified COMPARISON: Correlation is made with an unenhanced CT of the pelvis dated 10/31/2021. TECHNIQUE: Transabdominal and endovaginal real-time 2D mckenzie-scale ultrasound was performed. FINDINGS: Uterus: The uterus is normal in size, measuring 6.9 x 4.2 x 5.1 cm. Myometrium has a normal echotexture. No fibroids are identified. Endometrium: The endometrial stripe measures 3 mm in thickness. Right ovary: The right ovary measures 1.9 x 2.3 x 1.8 cm. The right ovary is normal in size and echotexture. Left ovary: The left ovary measures 3.0 x 1.7 x 1.5 cm. The left ovary is normal in size and echotexture. Pelvic fluid: none. US/US pelvic and transvaginal IMPRESSION: Unremarkable pelvic ultrasound. Electronically signed by: Tejinder Garcia MD 01/21/2025 03:37 PM [facility] [place]
--- OUTSIDE RECORDS SUMMARY | 2025-01-21 19:02 | XMS_ITS | Clinical Summary ---
Author Organization [facility] Address [address] [place] [address] Phone Care Team Providers Care Business Travel Consultant Name Role Phone Radha Boothe MD Primary Care Provider Allergies No known active allergies Medications cyproheptadine [...] Not on file Insurance [place] [place] [address] [address] [place] [address] [place] [address] [place] [address] [place] [address] [place] [address] [place] [address] [place] [address] [place] [address] [place] [address] [place] [address] [place] [address] ACO Care Teams Business Travel Consultant Relationship Specialty Start Date End Date Radha Boothe MD [address] [place] [address] PCP - General Internal Medicine 03/15/19 Additional Source Comments The information contained in this document represents components of the legal health record. It is not the complete legal health record.[facility]
--- OUTSIDE RECORDS SUMMARY | 2025-01-21 19:02 | XMS_ITS | Encounter Summary ---
Author Organization [facility] Address [address] [place] [address] [place] [id number] Phone Care Team Providers Care Magnetic Locater Name Role Phone Radha Boothe MD Primary Care Provider [phone] Encounter Details Date Type Department Care Team (Late st Contact Info) Description 04/07/2019 Ophth Exam [facility] Emergency Department [address] [place] [address] Miguel Romano MD [address] [place] [address] [email or web address] Social History Tobacco Use Types Packs/Day Years [...] on filedocumented in this encounter Care Teams Magnetic Locater Relationship Specialty Start Date End Date Radha Boothe MD [address] [place] [address] PCP - General Internal Medicine 03/15/19 documented as of this encounter Additional Source Comments The information contained in this document represents components of the legal health record. It is not the complete legal health record.[facility]
== END 2025-01-21 14:44 ==
LOC: HO.US 14:43
PROVIDERS: PCP Internal Medicine; Visit Provider Internal Medicine
DX: N92.6 Irregular menstruation, unspecified (principal)
CPT/HCPCS: 76830; 76856

== ENCOUNTER → 2025-01-21 14:45 | Outpatient (BNV) | payer OTHER, SELFPAY | PROVIDERS: PCP Internal Medicine; Visit Provider Radiology Diagnostic Radiology | DX: N92.6 Irregular menstruation, unspecified (principal) | CPT/HCPCS: 76830; 76856 ==